=== PATIENT | female | born 1960 | race Caucasian/White ===

== ENCOUNTER → 2016-03-16 | Outpatient (CLI) | payer MEDICAID ==
[2016-03-16 12:08] VITALS: BP 113/78; PULSE 114; RESP 16; TEMP 98
--- NOTE | 2016-03-16 12:25 | P.PN ---
Progress Note - Text This is a 55-year-old female with history of cervical spondylosis without myelopathy. The patient's pain fluctuates between 4 and 8 and she has been on Bandy, nortriptyline, Zanaflex, and Neurontin. The pain radiates from the base of her skull down to with numbness in both hands. By physical exam she is alert oriented 3 in no apparent distress. She has tenderness in the cervical paravertebral musculature and also in the trapezius muscles bilaterally. Her neuro exam of the upper extremities showed normal muscle strength and normal biceps tendon reflexes however are absent triceps tendon reflexes symmetrically. The patient is scheduled to have cervical medial branch radiofrequency ablation under fluoroscopic guidance I will continue with her medications for now. Hopefully if she gets benefit from the ablation then we'll plan on cutting down her medications especially Bandy.
== END | disposition home or self-care (01) ==
LOC: PNWHC3 11:48
PROVIDERS: ATTEND Anesthesiology
DX: M47.812 Spondylosis without myelopathy or radiculopathy, cervical region (principal); Z79.899 Other long term (current) drug therapy
CPT/HCPCS: 99211

== ENCOUNTER 2016-03-18 07:00 | Day surgery (SDC) | payer MEDICAID ==
[2016-03-16 09:46] VITALS: BMI 23.3
[2016-03-18] MEDS: LACTATED RINGERS 1,000 ML IV SCH (07:47)
[2016-03-18] MEDS: LIDOCAINE 1% 20 ML VIAL (10MG/ML) FOR IV START INTRADERMA ONE (07:47)
[2016-03-18 07:49] VITALS: TEMP 98.1
[2016-03-18] MEDS ORDERED: ONDANSETRON 4 MG/2 ML VIAL IVP STA (08:00)
[2016-03-18] MEDS: ONDANSETRON 4 MG/2 ML VIAL IVP ONE (08:01)
[2016-03-18] MEDS ORDERED: fentaNYL (PF) 50 MCG/ML 2 ML AMP ONE (08:06)
[2016-03-18] MEDS ORDERED: MIDAZOLAM 2 MG/2 ML VIAL ONE (08:06)
[2016-03-18] MEDS ORDERED: TRIAMCINOLONE ACETONIDE 40 MG/ML 1 ML VIAL ONE (08:06)
[2016-03-18] MEDS ORDERED: BUPIVACAINE (PF) 0.25% 30 ML VIAL ONE (08:06)
--- NOTE | 2016-03-18 08:49 | P.PCN ---
Date of Procedure: 03/18/16 Procedure(s) Performed: PREOPERATIVE DIAGNOSIS: Cervical spondylosis with Facet Arthropathy without myelopathy. POSTOPERATIVE DIAGNOSIS: Cervical spondylosis with Facet Arthropathy without myelopathy. PROCEDURES: Radiofrequency thermocoagulation,Right C3, C4, C5, C6 medial branch with Fluroscopy [place] ANESTHESIA: Local with 1% lidocaine 4 ml ; IV sedation with fentanyl 100 mcg and Versed. 2 mg EBL: Minimal PROCEDURE INDICATION: The patient with neck pain secondary to cervical arthropathy who had more than 50% relief of her pain with previous diagnostic cervical medial branch block. PROCEDURE DESCRIPTION / TECHNIQUE: The patient was seen and identified in the preoperative area. Risks, benefits, complications, and alternatives were discussed with the patient, the patient agreed to proceed with the procedure and signed the consent. IV was started. Vital signs remained stable throughout the procedure. Patient was taken to the OR and time out was completed. The patient was placed in the prone position on the procedure table. A pillow was placed under the patients chest to increase the cervical interlaminar space. The cervical area was prepped and draped in the usual sterile fashion. Critical pause was taken. Vital signs were closely monitored during the procedure. Conscious sedation was used during the procedure to decrease patients anxiety. Using cross-table lateral fluoroscopy, the centroid of the trapezoid of Right C3, C4, C5, and C6 were identified, marked, and localized with 1% lidocaine. Subsequently, a 20 [id number] radiofrequency cannula with a 10-mm active tip was advanced guided by fluoroscopy to the centroid of the trapezoid of the right C3, C4, C5, and C6 . Needle tip position was confirmed at the centroid of the trapezoids of C3, C4, C5, and C6 with anteroposterior fluoroscopy. Each site then underwent sensory testing at 50 Hz and 0 to 1 volt and motor testing at 2 Hz and 0 to 3 volt with local stimulation, but no radicular symptoms down the arm. Thereafter Right C3, C4,C5 and C6 sites underwent radiofrequency thermocoagulation at 80 degrees celsius for 90 seconds after injecting 0.5 ml of PF lidocaine 1%. After thermocoagulation, 1 ml of the block solution containing Kenalog 40 mg and 5 mL of preservative-free normal saline was injected at the right C3, C4, C5, and C6 levels after negative aspiration of CSF and blood and with no paresthesias. Cannulas were retracted while injecting lidocaine 1% until the needle is out. Skin was cleansed and bandages were applied. COMPLICATIONS: No acute complications. COMMENTS: DISPOSITION / PLANS: The patient was placed in a supine position and transferred to the recovery area in a stable condition for observation and was discharged from the recovery room after meeting discharge criteria. Home discharge instructions given to the patient by the staff. The patient was reexamined prior to discharge. The patient will schedule a follow up in the clinic in 2-4 weeks and we will do the radiofrequency on the left side.
[2016-03-18] MEDS: IV FLUID CONTINUATION 1,000 ML IV ONE (08:55)
[2016-03-18 09:02] VITALS: RESP 18
--- NOTE | 2016-03-18 09:03 | FL ---
FLUOROSCOPY 23 seconds of fluoroscopy time were utilized during Pain Injection. 2 images document the procedure.
[2016-03-18 09:12] VITALS: BP 108/71; PULSE 69
== END 2016-03-18 09:30 | disposition home or self-care (01) ==
LOC: ORPAIN 07:00
PROVIDERS: ATTEND Specialist
DX: M46.82 Other specified inflammatory spondylopathies, cervical region (principal); M47.812 Spondylosis without myelopathy or radiculopathy, cervical region; Z88.2 Allergy status to sulfonamides
CPT/HCPCS: 64633; 64634 ×3; J2250; J3301; J2405; J3010

== ENCOUNTER 2016-04-30 09:06 | Day surgery (SDC) | payer MEDICAID ==
[2016-04-30 09:35] VITALS: TEMP 98.2
[2016-04-30] MEDS ORDERED: LIDOCAINE 1% 20 ML VIAL (10MG/ML) FOR IV START INTRADERMA ONE (09:45)
[2016-04-30] MEDS ORDERED: fentaNYL (PF) 50 MCG/ML 2 ML AMP ONE (09:54)
[2016-04-30] MEDS ORDERED: TRIAMCINOLONE ACETONIDE 40 MG/ML 1 ML VIAL ONE (09:54)
[2016-04-30] MEDS ORDERED: LACTATED RINGERS 1,000 ML IV ONE (09:54)
[2016-04-30] MEDS ORDERED: ONDANSETRON 4 MG/2 ML VIAL ONE (09:54)
[2016-04-30] MEDS ORDERED: MIDAZOLAM 2 MG/2 ML VIAL ONE (09:54)
[2016-04-30] MEDS ORDERED: BUPIVACAINE (PF) 0.5% 30 ML VIAL ONE (09:54)
[2016-04-30] MEDS ORDERED: LACTATED RINGERS 1,000 ML IV SCH (10:15)
--- NOTE | 2016-04-30 10:45 | P.PCN ---
Date of Procedure: 04/30/16 Procedure(s) Performed: PREOPERATIVE DIAGNOSIS: Cervical spondylosis with Facet Arthropathy without myelopathy. POSTOPERATIVE DIAGNOSIS: Cervical spondylosis with Facet Arthropathy without myelopathy. PROCEDURES: Radiofrequency thermocoagulation Left , C3, C4, C5, C6 medial branch with Fluroscopy Guidence ANESTHESIA: Local with 1% lidocaine 4 ml ; IV sedation with fentanyl 100 mcg and Versed 2 mg. EBL: Minimal PROCEDURE INDICATION: The patient with neck pain secondary to cervical arthropathy who had more than 50% relief of her pain with previous diagnostic cervical medial branch block. PROCEDURE DESCRIPTION / TECHNIQUE: The patient was seen and identified in the preoperative area. Risks, benefits, complications, and alternatives were discussed with the patient, the patient agreed to proceed with the procedure and signed the consent. IV was started. Vital signs remained stable throughout the procedure. Patient was taken to the OR and time out was completed. The patient was placed in the prone position on the procedure table. A pillow was placed under the patients chest to increase the cervical interlaminar space. The cervical area was prepped and draped in the usual sterile fashion. Critical pause was taken. Vital signs were closely monitored during the procedure. Conscious sedation was used during the procedure to decrease patients anxiety. Using cross-table lateral fluoroscopy, the centroid of the trapezoid of left C3 , C4, C5, and C6 were identified, marked, and localized with 1% lidocaine. Subsequently, a 20 [id number] radiofrequency cannula with a 10-mm active tip was advanced guided by fluoroscopy to the centroid of the trapezoid of left C3, C4, C5, and C6 . Needle tip position was confirmed at the centroid of the trapezoids of left C3, C4, C5, and C6 with anteroposterior fluoroscopy. Each site then underwent sensory testing at 50 Hz and 0 to 1 volt and motor testing at 2 Hz and 0 to 3 volt with local stimulation, but no radicular symptoms down the arm. Thereafter the left C3, C4,C5 and C6 sites underwent radiofrequency thermocoagulation at 80 degrees celsius for 90 seconds after injecting 0.5 ml of PF lidocaine 1%. After thermocoagulation, 1 ml of the block solution containing Kenalog 40 mg and 5 mL of preservative-free normal saline was injected at the left C3, C4, C5, and C6 levels after negative aspiration of CSF and blood and with no paresthesias. Cannulas were retracted while injecting lidocaine 1% until the needle is out. Skin was cleansed and bandages were applied. COMPLICATIONS: No acute complications. COMMENTS: DISPOSITION / PLANS: The patient was placed in a supine position and transferred to the recovery area in a stable condition for observation and was discharged from the recovery room after meeting discharge criteria. Home discharge instructions given to the patient by the staff. The patient was reexamined prior to discharge. The patient will schedule a follow up in the clinic in 2-4 weeks.
[2016-04-30] MEDS ORDERED: IV FLUID CONTINUATION 700 ML IV ONE (10:51)
--- NOTE | 2016-04-30 11:05 | FL ---
EXAMINATION TYPE: FL guided pain mgmt statistic DATE OF EXAM: 04/30/2016 10:40 AM CLINICAL HISTORY: Neck pain. TECHNIQUE: Fluoroscopy. COMPARISON: None. FINDINGS: Fluoroscopic guidance was provided during pain relief procedure performed by Dr. Parra . A total of 8 seconds of fluoroscopic time was utilized during the procedure and two spot images ar e acquired. Images acquired shows needle localization at multiple levels in the cervical spine. IMPRESSION: As Above.
[2016-04-30 11:19] VITALS: BP 116/69; PULSE 65; RESP 18
== END 2016-04-30 11:19 | disposition home or self-care (01) ==
LOC: ORPAIN 09:06
PROVIDERS: ATTEND Specialist
DX: M47.812 Spondylosis without myelopathy or radiculopathy, cervical region (principal); M46.92 Unspecified inflammatory spondylopathy, cervical region; Z88.2 Allergy status to sulfonamides; Z91.030 Bee allergy status; Z91.02 Food additives allergy status
CPT/HCPCS: 64634 ×3; 64633; 99152; 99153 ×2; J2250; J3301; J2405; J3010

== ENCOUNTER → 2016-06-01 | Outpatient (CLI) | payer MEDICAID ==
[2016-06-01 12:33] VITALS: BP 143/83; PULSE 99; RESP 16; TEMP 98.4
--- NOTE | 2016-06-01 13:11 | P.PN ---
Progress Note - Text Patient returns for followup for chronic neck and back pain with radiation to right lower extremity. Patient recently underwent bilateral cervical RFA, which has provided excellent relief for her for the time interval since. Patient continues on [place], Neurontin, Zanaflex medications for pain with good relief. Patient denies adverse drug effects from medications. Today, pt denies new-onset weakness, bowel/bladder incontinence, or any other signs or symptoms of cauda equina syndrome. There are no signs of acute intoxication, and no indications of medication diversion or overuse. In addition to above, 13-point review of systems is also negative for chest pain , shortness of breath, changes in vision, changes in hearing, new onset weakness , abdominal pain, diarrhea, extreme fatigue, malaise, fever, skin changes, homicidal or suicidal ideation, or bowel or bladder incontinence. Vital Signs: Reviewed in EMR Gen: WDWN, AAOx3, NAD HEENT: NCAT, EOMI, hearing grossly normal Pulm: resp unlabored Abd: soft, NT, ND Neck: supple, trachea midline ROM in flexion lumbar spine: reduced ROM in extension lumbar spine: reduced Lumbar paravertebral tenderness: + Facet loading: + bilateral SI joint tenderness: + RLE Jasbir's test: neg bilateral Straight leg raise: + RLE Lower extremity: decreased ROM dorsiflexion/plantarflexion strength, hip flexion/extension, and knee flexion/extension secondary to pain Neuro: CN II-XII grossly intact, muscle strength lower extremities PRESERVED Imaging: Reviewed in EMR Assessment: 1. cervical spondylosis without myelopathy 2. lumbar spondylosis with myelopathy 3. SIJ dysfunction Plan: 1. Explanation: Opioid and psychological risk scores were reviewed. Diagnoses , prognoses, and multiple treatment options including but not limited to physical therapy, interventional therapies, adjuvant medical therapies, narcotic medication therapies, and surgery were discussed with the patient and all questions were answered to the patient's satisfaction. 2. Opioid agreement: Patient has previously signed narcotic agreement, and was orally counseled to not overuse, abuse, divert, or cell medications, and to take them as prescribed by only 1 healthcare provider. The patient was also counseled to store opioid medications in a safe and preferably locked location. Patient was also counseled against driving or operating heavy equipment while using narcotic medications and also to not use alcohol or any illicit or recreational drugs. The patient verbalized understanding that lack of compliance with any of the above and likely result in failure to renew narcotic prescriptions, possible discharge from the clinic, and possible legal ramifications thereafter if indicated. 3. Counseling: The patient was counseled extensively on BODY MASS INDEX, EXERCISE. Specifically, the patient was instructed regarding the importance of weight control and exercise in the context of both chronic pain and overall health. 4. Procedures: none for now, await MRI L-spine 5. Consultations: None 6. Investigations: MRI L-spine 7. Medications: [place] 10/325 #90 with one refill 8. Disposition: f/u for re-eval in 8 weeks PQRS measures: 1-Patient's medications are documented in the chart. 2-Tobacco use is negative 3-Patient has not had a pneumococcal vaccine. 4-Advanced care planning discussed, patient unable to give. 5-Opioid contract signed with the patient. 6-Pain positive, follow-up visit or procedure scheduled 7-Patient's blood pressure measured and documented, and patient will follow up with the primary care due to hypertension. 8-Patient's weight was measured, and body mass index ABOVE the normal limits, and counseling was done. Patient instructed to follow up with PCP. 9-Patient WAS NOT identified as an unhealthy alcohol user.
== END ==
LOC: PNWHC3 12:17
PROVIDERS: ATTEND Anesthesiology
DX: M47.16 Other spondylosis with myelopathy, lumbar region (principal); M47.812 Spondylosis without myelopathy or radiculopathy, cervical region; M53.88 Other specified dorsopathies, sacral and sacrococcygeal region
CPT/HCPCS: 80307; 80364; 99211

== ENCOUNTER → 2016-06-16 | Outpatient (CLI) | payer MEDICAID ==
--- NOTE | 2016-06-16 13:32 | MR ---
EXAMINATION TYPE: MR lumbar spine wo con DATE OF EXAM: 06/16/2016 1:17 PM COMPARISON: MRI lumbar spine August 01, 2013. HISTORY: lumbar spondylosis w/myelopathy per order. TECHNIQUE: Multiplanar, multisequence imaging of the lumbar spine is performed without IV contrast. FINDINGS: Sagittal images of the lumbar spine show vertebral body heights to appear satisfactory. Sta ble slight dextroconvex scoliosis is present. There is persistent multilevel disc desiccation. There is persistent moderate multilevel disc space narrowing and advanced disc space narrowing L5-S1 level. Multilevel small posterior disc herniations are seen on sagittal images. The conus medullaris remai ns normal in position and signal ending at inferior L1 level. The bone marrow signal intensity is wi thin normal limits. Mild to moderate multilevel anterior spurring is redemonstrated. Axial images show the T12-L1 level to remain within normal limits. Axial images at L1-L2 level redemonstrate mild broad based posterior disc protrusion mildly effacing anterior thecal sac, bilateral neural foramina are patent. No significant change from prior study is seen. Mild facet arthropathy bilaterally is redemonstrated and stable. Axial images at L2-L3 level show mild broad disc bulge mildly effacing anterior thecal sac on axial i mage 17. Bilateral neural foramina are patent. No significant change from prior study is seen. Axial images at L3-L4 level show mild facet degenerative changes bilaterally at effacing posterior la teral thecal sac. There is mild broad disc bulge effacing anterior thecal sac on axial image 12. Ther e is mild bilateral anterior inferior neural foraminal narrowing seen. No significant change from adrian or study is identified. Axial images at L4-L5 level show moderate facet degenerative changes and ligamentum flavum hypertroph y bilaterally effacing posterior lateral thecal sac or prominent on current study axial image 7 versu s prior study. There is broad-based posterior disc protrusion effacing anterior thecal sac and causin g mild to moderate right and mild left-sided neural foraminal narrowing more prominent than prior imani dy. Axial images at L5-S1 level mild facet arthropathy bilaterally. Spinal canal is preserved. Bilateral neural foramina are maintained. There is subcentimeter T2 hyperintense lesion posterior right hepatic lobe on axial image 30 likely r eflecting simple cyst. IMPRESSION: Stable dextroconvex scoliosis with multilevel degenerative changes in lumbar spine as det liliane above, progression in findings L4-L5 level is noted since prior.
== END | disposition home or self-care (01) ==
LOC: RADMRIMAIN 12:39
PROVIDERS: ATTEND Anesthesiology
DX: M47.16 Other spondylosis with myelopathy, lumbar region (principal); M41.86 Other forms of scoliosis, lumbar region
CPT/HCPCS: 72148

== ENCOUNTER → 2016-07-27 | Outpatient (CLI) | payer MEDICAID ==
[2016-07-27 12:55] VITALS: BP 99/62; PULSE 87; RESP 16
--- NOTE | 2016-07-28 14:49 | P.PN ---
Subjective This is follow-up visit for this patient with a history of severe and chronic neck pain, diagnosed with cervical spondylosis, we did interventional pain management injection,, we done diagnostic medial branch block cervical area, and later on followed with radiofrequency ablation of the medial branch cervical area, she got excellent pain relief, and currently she is complaining of severe low back pain, and we ordered MRI of the lumbar spine, and patient here today to discuss the results of the MRI report and also to get medication refill Her MRI report showed patient had multi leveles lumbar bulging disc disease and also she had multilevel lumbar facet arthropathy, she denies any motor or sensory deficit she denies any fever or night sweats which she denies any change in the movement or urination, she is currently on 1-Leonidas 10/325 every 6 hours 2- Neurontin 300 mg every 8 hours 3- zanaflex 4 mg every 8 hours. 4-nortriptyline 10 mg daily at bedtime Patient denies any side effects of the medication, denies excessive drowsiness or sleepiness, denies suicidal ideation, and reports that the current pain medication is helping To control the pain and improve activity of daily living . Patient denies any motor or sensory deficit, denies change in bowel movement or urination, patient denies any fever or night sweats and patient here for follow-up visit and medication refill Objective - Vital Signs Vital signs: Vital Signs Temp Pulse 87 07/27/16 12:47 Resp 16 07/27/16 12:47 BP 99/62 07/27/16 12:47 Pulse Ox 98 07/27/16 12:47 Intake & Output 07/27/16 07/28/16 07/28/16 18:59 06:59 18:59 Weight 68.039 kg - Exam Physical Examinations : 1-Constitutiona : Cooperative , not in acute distress . 2-HEENT : nech ; supple , no Lymphadenopathy , normal thyroid size . eyes : no ptosis , no icterus, no photophobia . ENT : normal of hearing , normal oropharynx , no Thrush . 3- Respiratory : Chest clear to auscultations Bilaterally , no wheezing , no Rhonchi . 4- Cardiovascular : regular rate and rhythem , S1 , S2 , no S3 , no S4. 5- Gastrointestinal : abdomen soft no tenderness , bowel sounds positive all four quadrents , no organomegally . 6- Genitourinary : Defferred . 7- neurologic : Cranial nerve II to XII intact , no focal neurological deffecit . 8-psychatric : alert , oriented X 3 , appropriate affect , intact judgment and insight . 9-Lymphatic : no Lymphadenopathy . 10- musculoskeltal : cervical spine = motor stregnth in the deltoid and biceps, motor stregnth biceps and the wrist extensors (C6) . motor stregnth in the triceps muscle . deep tendon reflexes normal at the biceps , l normal at Brachioradialis normal at the triceps , Lumber spine = normal moter stegnth lower extremities ,thigh and legs .5/5 deep tendon reflexes : normal Knee Jerk , normal ankle Jerk . positive lumber facet Loading Test strait leg raising test negative bilaterally Fabere test negative bilaterally mild to moderate tenderness over the Sacroiliac joint on the Right , and Left side Assessment and Plan Plan: Assessment and plan= -chronic low back pain secondary to lumbar degenerative disc disease , lumbar spondylosis with lumbar facet arthropathy without myelopathy, -chronic neck pain secondary to cervical degenerative disc disease cervical spondylosis with facet arthropathy without myelopathy. - chronic and current use of high-risk medication (opioids) -Patient denies any side effects of the current pain medication and the current treatment, and the patient to do activity of daily living , Medication managements= patient will be given prescription refills for 1-Leonidas 10/325 every 6 hours dispensed 90 with 1 refil 2-Zanaflex 4 mg every 8 hours dispense 90 with 1 refill 3-nortriptyline 10 mg daily at bedtime dispense 30 with one refill 4-Neurontin 300 mg every 8 hours dispense 90 with 1 refill Interventional pain management= patient will be scheduled for diagnostic medial branch block lumbar area L3-4/L- 5/L5-S1 Refferal =none Follow-up= 2 months , Time with Patient: Less than 30
== END ==
LOC: PNWHC3 12:25
PROVIDERS: ATTEND Specialist
DX: M51.36 Other intervertebral disc degeneration, lumbar region (principal); M47.816 Spondylosis without myelopathy or radiculopathy, lumbar region; M46.86 Other specified inflammatory spondylopathies, lumbar region; G89.29 Other chronic pain; M50.30 Other cervical disc degeneration, unspecified cervical region; M47.812 Spondylosis without myelopathy or radiculopathy, cervical region; M46.82 Other specified inflammatory spondylopathies, cervical region; Z79.891 Long term (current) use of opiate analgesic
CPT/HCPCS: 99211

== ENCOUNTER → 2016-09-21 | Outpatient (CLI) | payer MEDICAID ==
[2016-09-21 12:43] VITALS: BP 124/58; PULSE 78; RESP 18; TEMP 98.2
--- NOTE | 2016-09-21 13:01 | P.PN ---
Progress Note - Text Patient returns for followup for chronic neck and back pain with radiation to right lower extremity > left lower extremity. Patient was scheduled to undergo lumbar MBB but developed a sinus infection and had to reschedule. Patient continues on [place], Neurontin, Pamelor, Zanaflex medications for pain with good relief. Patient denies adverse drug effects from medications. Today, pt denies new-onset weakness, bowel/bladder incontinence, or any other signs or symptoms of cauda equina syndrome. There are no signs of acute intoxication, and no indications of medication diversion or overuse. In addition to above, 13-point review of systems is also negative for chest pain , shortness of breath, changes in vision, changes in hearing, new onset weakness , abdominal pain, diarrhea, extreme fatigue, malaise, fever, skin changes, homicidal or suicidal ideation, or bowel or bladder incontinence. Vital Signs: Reviewed in EMR Gen: WDWN, AAOx3, NAD HEENT: NCAT, EOMI, hearing grossly normal Pulm: resp unlabored Abd: soft, NT, ND Neck: supple, trachea midline ROM in flexion lumbar spine: reduced ROM in extension lumbar spine: reduced Lumbar paravertebral tenderness: + Facet loading: + bilateral, R > L SI joint tenderness: + R Jasbir's test: neg bilateral Straight leg raise: neg Lower extremity: decreased ROM dorsiflexion/plantarflexion strength, hip flexion/extension, and knee flexion/extension secondary to pain Neuro: CN II-XII grossly intact, muscle strength lower extremities PRESERVED Imaging: Reviewed in EMR Assessment: 1. cervical spondylosis without myelopathy 2. lumbar spondylosis with myelopathy 3. SIJ dysfunction Plan: 1. Explanation: Opioid and psychological risk scores were reviewed. Diagnoses , prognoses, and multiple treatment options including but not limited to physical therapy, interventional therapies, adjuvant medical therapies, narcotic medication therapies, and surgery were discussed with the patient and all questions were answered to the patient's satisfaction. 2. Opioid agreement: Patient has previously signed narcotic agreement, and was orally counseled to not overuse, abuse, divert, or cell medications, and to take them as prescribed by only 1 healthcare provider. The patient was also counseled to store opioid medications in a safe and preferably locked location. Patient was also counseled against driving or operating heavy equipment while using narcotic medications and also to not use alcohol or any illicit or recreational drugs. The patient verbalized understanding that lack of compliance with any of the above and likely result in failure to renew narcotic prescriptions, possible discharge from the clinic, and possible legal ramifications thereafter if indicated. 3. Counseling: The patient was counseled extensively on BODY MASS INDEX, EXERCISE. Specifically, the patient was instructed regarding the importance of weight control and exercise in the context of both chronic pain and overall health. 4. Procedures: lumbar MBB bilateral 5. Consultations: None 6. Investigations: 7. Medications: [place] 10/325 #90 with one refill, Neurontin (300 mg #90)/ Zanaflex/Pamelor refilled all with two refills 8. Disposition: f/u for re-eval in 8 weeks PQRS measures: 1-Patient's medications are documented in the chart. 2-Tobacco use is negative 3-Patient has not had a pneumococcal vaccine. 4-Advanced care planning discussed, patient unable to give. 5-Opioid contract signed with the patient. 6-Pain positive, follow-up visit or procedure scheduled 7-Patient's blood pressure measured and documented, and patient will follow up with the primary care due to hypertension. 8-Patient's weight was measured, and body mass index ABOVE the normal limits, and counseling was done. Patient instructed to follow up with PCP. 9-Patient WAS NOT identified as an unhealthy alcohol user.
== END | disposition home or self-care (01) ==
LOC: PNWHC3 12:28
PROVIDERS: ATTEND Anesthesiology
DX: M47.812 Spondylosis without myelopathy or radiculopathy, cervical region (principal); M47.816 Spondylosis without myelopathy or radiculopathy, lumbar region; M53.3 Sacrococcygeal disorders, not elsewhere classified
CPT/HCPCS: 99211

== ENCOUNTER → 2016-10-08 | Outpatient (CLI) | payer MEDICAID ==
[2016-10-08 17:16] LABS: Basophils # (A) 0.1 k/uL (0-0.2); Basophils % (A) 1 %; CH 31.3; CHCM 33.7; Eosinophils # (A) 0.2 k/uL (0-0.7); Eosinophils % (A) 2 %; HCT 39.3 % (34.0-46.0); HDW 2.81; HGB 12.8 gm/dL (11.4-16.0); Luc % (Auto) 3; Lymphocytes # (A) 1.7 k/uL (1.0-4.8); Lymphocytes % (A) 26 %; MCH 30.3 pg (25.0-35.0); MCHC 32.5 g/dL (31.0-37.0); MCV 93.2 fL (80.0-100.0); Mean Platelet Volume 7.1; Monocytes # (A) 0.3 k/uL (0-1.0); Monocytes % (A) 4 %; Neutrophils # (A) 4.2 k/uL (1.3-7.7); Neutrophils % (A) 64 %; RBC 4.22 m/uL (3.80-5.40); RDW 13.3 % (11.5-15.5); WBC 6.6 k/uL (3.8-10.6); WBC (Perox) 6.81
[2016-10-08 17:22] LABS: ALT 37 U/L (9-52); AST 21 U/L (14-36); Alkaline Phosphatase 88 U/L (38-126); Anion Gap 10 mmol/L; Blood Urea Nitrogen 16 mg/dL (7-17); Calcium 9.6 mg/dL (8.4-10.2); Carbon Dioxide 26 mmol/L (22-30); Chloride 106 mmol/L (98-107); Cholesterol 211 mg/dL (<200); Glucose 88 mg/dL (74-99); HDL Cholesterol 44 mg/dL (40-60); Non-African American GFR(MDRD) >60 (>60 ml/min/1.73 sqM); Potassium 4.3 mmol/L (3.5-5.1); Sodium 142 mmol/L (137-145); Total Bilirubin 0.4 mg/dL (0.2-1.3); Total Protein 6.8 g/dL (6.3-8.2)
[2016-10-08 19:53] LABS: Hemoglobin A1C 5.8 % (4.2-6.1)
== END | disposition home or self-care (01) ==
LOC: LABWHC1 16:32
PROVIDERS: ATTEND Family Medicine
DX: I10 Essential (primary) hypertension (principal)
CPT/HCPCS: 36415; 80053; 80061; 83036; 84443; 85025

== ENCOUNTER 2016-10-15 13:03 | Day surgery (SDC) | payer MEDICAID ==
[2016-10-14 08:39] VITALS: BMI 24.1
[~2016-10-15 13:03] MED LIST: LACTATED RINGERS 1,000 ML IV ONE
[2016-10-15 13:16] VITALS: TEMP 97.6
[2016-10-15] MEDS ORDERED: LIDOCAINE 1% 20 ML VIAL (10MG/ML) FOR IV START INTRADERMA ONE (13:16)
[2016-10-15] MEDS ORDERED: ONDANSETRON 4 MG/2 ML VIAL IVP STA (13:27)
--- NOTE | 2016-10-15 15:08 | P.PCN ---
Date of Procedure: 10/15/16 Preoperative Diagnosis: Postoperative Diagnosis: Procedure(s) Performed: PREOPERATIVE DIAGNOSIS : 1- Lumbar spondylosis with Facet Arthropathy without myelopathy . 2- Lumber degenerative disc disease POSTOPERATIVE DIAGNOSIS: 1- Lumbar spondylosis with Facet Arthropathy without myelopathy . 2- Lumber degenerative disc disease PROCEDURE: Diagnostic bilateral L3 -4 , L4 -5 , and L5-S1 medial branch block under fluoroscopy ANESTHESIA: Local with 1% lidocaine 6 ml ; IV sedation with Versed 2 mg and Fentanyl 25 mcg. EBL: Minimal COMPLICATION: None. IV FLUIDS: 100 mL of normal saline. PROCEDURE INDICATION: Chronic low back pain secondary to Facet arthropathy unresponsive to conservative treatment. PROCEDURE DESCRIPTION: the patient was seen and identified in the preop holding area , risks and benefits and possible complications of the procedure and alternative were discussed with the patient, and the patient agreed to proceed with the procedure and signed the consent IV was started and vital signs monitored during the procedure and fluoroscopy was used to maximize the benefit and accuracy of the needle placement, and sedation was given to decrease patient anxiety, patient was taken to the procedure room and placed in prone position vital signs monitored in the back prepped with chlorhexidine X3 then under strict sterile technique using a right oblique fluoroscopy ,the junction of the transverse process and the superior articulating process of the right L3- 4 , L4- 5, and L5-S1 vertebra which corresponding to the fluoroscopy image of the eye of the Jonathon dog on the block side for the medial branches and subsequently , after local infiltration of skin and subcu tissuies with lidocaine 1% one mL at each level ,then 22- gauge Quincke-type needles , 3 needle was used , each one of them placed at the junction of the base of the transverse process and the superior articular process at the appropriate level, and the needle was advanced until the periosteum contacted, needle placement confirmed with AP oblique and lateral view and after appropriate needle placement confirmed, and after negative aspiration for heme and CSF and there was no paresthesia 1-1/2 mL of Marcaine 0.5% mixed with 40 mg Kenalog , then half mL injected at each level after negative aspiration the needle subsequently removed and the same procedure repeated for the left side at left side at L3-4, L4- 5 and L5-S1 levels. At the end of the procedure and the needles removed and a bandage applied after the skin was cleaned the cleaning solution patient taken to recovery room in stable condition and monitors in the recovery room for 20-30 minutes and discharged home in stable condition after discharge criteria met and patient will follow up with the pain clinic in 2-4 weeks Implants: Indications for Procedure: Operative Findings: Description of Procedure:
[2016-10-15 15:17] VITALS: RESP 16
[2016-10-15] MEDS ORDERED: IV FLUID CONTINUATION 1,000 ML IV ONE (15:20)
--- NOTE | 2016-10-15 15:22 | FL ---
FLUOROSCOPY 11 seconds of fluoroscopy time were utilized during lumbar facet injection. 4 images document the pro cedure.
[2016-10-15 15:29] VITALS: BP 87/64; PULSE 71
== END 2016-10-15 15:32 | disposition home or self-care (01) ==
LOC: ORPAIN 13:03
PROVIDERS: ATTEND Specialist
DX: G89.29 Other chronic pain (principal); M47.816 Spondylosis without myelopathy or radiculopathy, lumbar region; M46.96 Unspecified inflammatory spondylopathy, lumbar region; M51.36 Other intervertebral disc degeneration, lumbar region; Z88.2 Allergy status to sulfonamides; Z88.1 Allergy status to other antibiotic agents; Z91.02 Food additives allergy status
CPT/HCPCS: 64493; 64494; 64495; 99152; J2250; J1100; J2405; J3010

== ENCOUNTER 2016-11-16 09:29 | Day surgery (SDC) | payer MEDICAID ==
[2016-11-16 10:05] VITALS: TEMP 97.8
[2016-11-16] MEDS ORDERED: LACTATED RINGERS 1,000 ML IV ONE (10:05)
[2016-11-16] MEDS ORDERED: LIDOCAINE 1% 20 ML VIAL (10MG/ML) FOR IV START INTRADERMA ONE (10:06)
--- NOTE | 2016-11-16 10:40 | P.PCN ---
Date of Procedure: 11/16/16 Surgeon: Fracisco Flores Pathology: none sent Condition: stable Disposition: PACU Description of Procedure: PREOPERATIVE DIAGNOSIS: L3-L4, L4-L5, and L5-S1 spondylosis without myelopathy and facet arthropathy. POSTOPERATIVE DIAGNOSIS: L3-L4, L4-L5, and L5-S1 spondylosis without myelopathy and facet arthropathy. PROCEDURE DESCRIPTION: Patient presents for L3-L4, L4-L5 and L5-S1 diagnostic medial branch blocks under fluoroscopic guidance. The procedure is performed using fluoroscopic guidance during needle placement to assure proper position and maximize safety. ANESTHESIA: Local with 1% lidocaine; conscious sedation with Versed only EBL: Minimal PROCEDURE INDICATION: Patient with lumbar facet arthropathy signs and symptoms, here for diagnostic medial branch block #2. Pt does not take any blood thinning medications. 1 day's relief from first MBB > 70% and patient is here for second procedure today. PROCEDURE DESCRIPTION: The patient was seen and identified in the preoperative area. Risks, benefits, complications, and alternatives were discussed with the patient (including but not limited to incomplete pain relief, bleeding, infection, nerve damage, and allergies to medications), the patient agreed to proceed with the procedure and signed the consent after all questions were answered. Patient was taken to the OR and time out was completed to verify proper patient, position, laterality of pain, and allergies. Pt was placed in the prone position and a pillow was placed under the abdomen to reduce lumbar lordosis. The lumbosacral area was prepped and draped in the usual sterile fashion. Using oblique fluoroscopy, the eye of the "Jonathon dog" of right L4 vertebral body, which corresponds to the path of the medial branch originating from the level above, which is L3 in this case, was identified. Subsequently, a 22-gauge 3.5-inch spinal needle was inserted under fluoroscopic guidance toward the eye of the "Jonathon dog" of the right L4 vertebral body, corresponding to the junction of the superior articular process and the transverse process of the pedicle of the same level. After needle tip confirmation on lateral view and after negative aspiration for CSF and blood and without paresthesias, 1 mL of a 6 ml solution of 0.5% preservative-free bupivacaine and 40 mg Kenalog was injected. Subsequently the needle was withdrawn intact and the same procedure was repeated for the right L4, right L5, left L3, left L4, and left L5 medial branches which together with right L3 medial branch correspond to the sensory innervation of the bilateral L3-L4, L4-L5, and L5-S1 facet joints. Needle was withdrawn intact after each injection. At the end of the procedure, the skin was cleansed and bandages were applied. COMPLICATIONS: None. DISPOSITION/PLAN: The patient taken to the recovery area after the procedure in a stable condition for observation. Patient was reexamined prior to discharge and there were no issues. Patient was discharged home, accompanied by an adult, after meeting discharged criteria. Discharge instructions were give to the patient by the staff. Patient was specifically instructed not to drive today and to rest for the rest of the day. If good relief, will plan for right lumbar RFA next.
[2016-11-16] MEDS ORDERED: KETOROLAC 30 MG/ML 1 ML VIAL IVP STA (10:42)
[2016-11-16] MEDS ORDERED: HYDROmorphone 1 MG/ML 1 ML SYRINGE IVP PRN (10:43)
[2016-11-16] MEDS ORDERED: LACTATED RINGERS 1,000 ML IV SCH (10:45)
[2016-11-16] MEDS ORDERED: IV FLUID CONTINUATION 1,000 ML IV ONE ×2 (10:47)
--- NOTE | 2016-11-16 11:08 | FL ---
EXAMINATION TYPE: FL guided pain mgmt statistic DATE OF EXAM: 11/16/2016 CLINICAL HISTORY: Low back pain. TECHNIQUE: Fluoroscopy. COMPARISON: None. FINDINGS: Fluoroscopic guidance was provided during pain relief procedure performed by Dr. Flores . A total of 9 seconds of fluoroscopic time was utilized during the procedure and 5 spot images are acq uired. Images acquired shows needle localization at multiple levels bilaterally in the lower lumbar spine. IMPRESSION: As Above.
[2016-11-16 11:19] VITALS: RESP 18
[2016-11-16] MEDS ORDERED: ONDANSETRON 4 MG/2 ML VIAL IVP STA (11:22)
[2016-11-16 11:32] VITALS: BP 155/91; PULSE 87
== END 2016-11-16 11:57 | disposition home or self-care (01) ==
LOC: ORPAIN 09:29
PROVIDERS: ATTEND Anesthesiology
DX: M47.816 Spondylosis without myelopathy or radiculopathy, lumbar region (principal); M47.817 Spondylosis without myelopathy or radiculopathy, lumbosacral region; I10 Essential (primary) hypertension; E03.9 Hypothyroidism, unspecified; Z88.2 Allergy status to sulfonamides; Z79.899 Other long term (current) drug therapy; Z91.030 Bee allergy status; Z91.02 Food additives allergy status
CPT/HCPCS: 64493; 64494; 64495; 99152; J2250; J3301; J2405; J1885; J1170

== ENCOUNTER 2016-12-30 19:02 | Emergency (ER) | payer MEDICAID ==
--- NOTE | 2016-12-30 20:00 | ED ---
General Adult HPI - General Chief complaint: Recheck/Abnormal Lab/Rx Stated complaint: Recheck Time Seen by Provider: 12/30/16 19:05 Source: patient, RN notes reviewed Mode of arrival: ambulatory Limitations: no limitations - History of Present Illness Initial comments: This a 56-year-old female comes in today because while at work she was having abnormal extremity movements of all 4 extremities. She was also moving her head and abnormal ways at the staff and never seen before sleep wanted the patient to be evaluated. Patient states that about 3 weeks ago she was admitted to the hospital for similar. Patient states she has not started any new medicines prior to the initial episode. Patient denies any drug use or alcohol use. Patient agrees that her muscles are twitching and moving abnormally but this is been ongoing since her last admission. Patient denies any headache patient denies numbness or weakness. Patient denies any recent fever chills or chills. Patient denies any neck pain. Patient denies any recent trauma. Staff also thought the patient was giggling occasionally inappropriately but currently she is not exhibiting any of that behavior here. - Related Data Home Medications Medication Instructions Recorded Confirmed Ibuprofen [Motrin] 400 mg PO BID PRN 03/16/16 12/30/16 rOPINIRole HCL [Requip] 1 mg PO HS 12/23/16 12/30/16 Previous Rx's Medication Instructions Recorded Gabapentin [Neurontin] 300 mg PO TID #90 cap 09/21/16 HYDROcodone/APAP 10-325MG [[place] 1 each PO BID PRN #30 tab 12/04/16 10-325] Levothyroxine Sodium [Synthroid] 75 mcg PO 0630 #30 tab 12/04/16 tiZANidine [Zanaflex] 2 mg PO TID PRN #60 tab 12/04/16 Allergies Allergy/AdvReac Type Severity Reaction Status Date / Time gluten Allergy swelling Verified 12/30/16 19:11 of thyroid venom-honey bee Allergy Anaphylaxis Verified 12/30/16 19:11 [bee venom (honey bee)] Sulfa (Sulfonamide AdvReac Diarrhea Verified 12/30/16 19:11 Antibiotics) Review of Systems ROS Statement: Those systems with pertinent positive or pertinent negative responses have been documented in the HPI. ROS Other: All systems not noted in ROS Statement are negative. Past Medical History Past Medical History: Fibromyalgia, Hyperlipidemia, Osteoarthritis (OA), Thyroid Disorder Additional Past Medical History / Comment(s): Pt states that about 3 days ago she started having jerky, uncontrollable movements along with muscle spasms and clenching of her teeth. She has also started having difficulty swallowing solids and liquids. Other hx: cervical and back disc disease/herniations, R sided sciatica, migraines, numbness/tingling bilateral hands/fingers and feet , lately elevated blood pressure, hypothyroid. History of Any Multi-Drug Resistant Organisms: None Reported Past Surgical History: Orthopedic Surgery, Tonsillectomy, Tubal Ligation Additional Past Surgical History / Comment(s): Numerous [facility] procedures with last time being 11/16/16 lumbar facet block, right carpal tunnel release, right shoulder arthroscopic sx for impingement. Past Anesthesia/Blood Transfusion Reactions: No Reported Reaction, Postoperative Nausea & Vomiting (PONV) Past Psychological History: Anxiety Smoking Status: Former smoker - Past Family History Mother Family Medical History: No Reported History Additional Family Medical History / Comment(s): Mother is healthy. Father Family Medical History: Dementia Additional Family Medical History / Comment(s): Father from alzheimers. General Exam - General Exam Comments Initial Comments: GENERAL: Patient is well-developed and well-nourished. Patient is nontoxic and well- hydrated and is in no acute distress. Patient is having involuntary movements of all 4 of her extremities she does not appear to be in any distress or pain ENT: Neck is soft and supple. No significant lymphadenopathy is noted. Oropharynx is clear. Moist mucous membranes. Neck has full range of motion without eliciting any pain. EYES: The sclera were anicteric and conjunctiva were pink and moist. Extraocular movements were intact and pupils were equal round and reactive to light. Eyelids were unremarkable. PULMONARY: Unlabored respirations. Good breath sounds bilaterally. No audible rales rhonchi or wheezing was noted. CARDIOVASCULAR: There is a regular rate and rhythm without any murmurs gallops or rubs. ABDOMEN: Soft and nontender with normal bowel sounds. SKIN: Skin is clear with no lesions or rashes and otherwise unremarkable. NEUROLOGIC: Patient is alert and oriented x3. Cranial nerves II through XII are grossly intact. Motor and sensory are also intact. Normal speech, volume and content. Symmetrical smile. Musculoskeletal Normal extremities with adequate strength and full range of motion. LYMPHATICS: No significant lymphadenopathy is noted PSYCHIATRIC: Normal psychiatric evaluation. Patient is upset because she is embarrassed that she was pulled aside in front of her coworkers. Limitations: no limitations Course Vital Signs 12/30/16 12/30/16 19:06 21:28 Temperature 99.0 F 98.3 F Pulse Rate 115 H 108 H Respiratory 20 18 Rate Blood Pressure 180/95 144/83 O2 Sat by Pulse 96 98 Oximetry Medical Decision Making - Medical Decision Making EKG shows sinus tachycardia at 104 bpm WI interval is 132 QRS is 76 QT interval 332 QTC is 436. I spoke with Dr. Britt and he agrees that the Neurontin because the patient's symptoms. The patient will reduce her Neurontin just once a day for a week and if her symptoms improve she will stop altogether after a week. I spoke to her and her son they both understand. - Lab Data Result diagrams: 12/30/16 20:15 12/30/16 20:15 Lab Results 12/30/16 12/30/16 12/30/16 Range/Units 20:15 20:15 20:15 WBC 11.5 H (3.8-10.6) k/uL RBC 4.06 (3.80-5.40) m/uL Hgb 12.4 (11.4-16.0) gm/dL Hct 38.1 (34.0-46.0) % MCV 94.0 (80.0-100.0) fL MCH 30.6 (25.0-35.0) pg MCHC 32.6 (31.0-37.0) g/dL RDW 13.8 (11.5-15.5) % Plt Count 332 (150-450) k/uL Neutrophils % 77 % Lymphocytes % 13 % Monocytes % 7 % Eosinophils % 1 % Basophils % 0 % Neutrophils # 8.8 H (1.3-7.7) k/uL Lymphocytes # 1.5 (1.0-4.8) k/uL Monocytes # 0.8 (0-1.0) k/uL Eosinophils # 0.2 (0-0.7) k/uL Basophils # 0.0 (0-0.2) k/uL Sodium 143 (137-145) mmol/L Potassium 3.9 (3.5-5.1) mmol/L Chloride 109 H (98-107) mmol/L Carbon Dioxide 23 (22-30) mmol/L Anion Gap 11 mmol/L BUN 12 (7-17) mg/dL Creatinine 0.70 (0.52-1.04) mg/dL Est GFR (MDRD) Af Amer >60 (>60 ml/min/1.73 sqM) Est GFR (MDRD) Non-Af >60 (>60 ml/min/1.73 sqM) Glucose 87 (74-99) mg/dL POC Glucose (mg/dL) (75-99) mg/dL POC Glu Dairy Science Teacher ID Calcium 9.5 (8.4-10.2) mg/dL Total Bilirubin 0.3 (0.2-1.3) mg/dL AST 36 (14-36) U/L ALT 39 (9-52) U/L Alkaline Phosphatase 115 (38-126) U/L Total Protein 6.7 (6.3-8.2) g/dL Albumin 4.2 (3.5-5.0) g/dL TSH 0.031 L (0.465-4.680) mIU/L Free T4 1.91 (0.78-2.19) ng/dL Urine Color Yellow Urine Appearance Clear (Clear) Urine pH 6.0 (5.0-8.0) Ur Specific [place] 1.020 (1.001-1.035) Urine Protein Trace H (Negative) Urine Glucose (UA) Negative (Negative) Urine Ketones 2+ H (Negative) Urine Blood Negative (Negative) Urine Nitrite Negative (Negative) Urine Bilirubin Negative (Negative) Urine Urobilinogen <2.0 (<2.0) mg/dL Ur Leukocyte Esterase Large H (Negative) Urine RBC 4 (0-5) /hpf Urine WBC 4 (0-5) /hpf Ur Squamous Epith Cells 1 (0-4) /hpf Urine Bacteria Rare H (None) /hpf Urine Mucus Occasional H (None) /hpf Urine Opiates Screen Detected H (NotDetected) Ur Oxycodone Screen Not Detected (NotDetected) Urine Methadone Screen Not Detected (NotDetected) Ur Propoxyphene Screen Not Detected (NotDetected) Ur Barbiturates Screen Not Detected (NotDetected) U Tricyclic Antidepress Not Detected (NotDetected) Ur Phencyclidine Scrn Not Detected (NotDetected) Ur Amphetamines Screen Not Detected (NotDetected) U Methamphetamines Scrn Not Detected (NotDetected) U Benzodiazepines Scrn Not Detected (NotDetected) Urine Cocaine Screen Not Detected (NotDetected) U Marijuana (THC) Screen Not Detected (NotDetected) 12/30/16 Range/Units 20:27 WBC (3.8-10.6) k/uL RBC (3.80-5.40) m/uL Hgb (11.4-16.0) gm/dL Hct (34.0-46.0) % MCV (80.0-100.0) fL MCH (25.0-35.0) pg MCHC (31.0-37.0) g/dL RDW (11.5-15.5) % Plt Count (150-450) k/uL Neutrophils % % Lymphocytes % % Monocytes % % Eosinophils % % Basophils % % Neutrophils # (1.3-7.7) k/uL Lymphocytes # (1.0-4.8) k/uL Monocytes # (0-1.0) k/uL Eosinophils # (0-0.7) k/uL Basophils # (0-0.2) k/uL Sodium (137-145) mmol/L Potassium (3.5-5.1) mmol/L Chloride (98-107) mmol/L Carbon Dioxide (22-30) mmol/L Anion Gap mmol/L BUN (7-17) mg/dL Creatinine (0.52-1.04) mg/dL Est GFR (MDRD) Af Amer (>60 ml/min/1.73 sqM) Est GFR (MDRD) Non-Af (>60 ml/min/1.73 sqM) Glucose (74-99) mg/dL POC Glucose (mg/dL) 86 (75-99) mg/dL POC Glu Dairy Science Teacher ID Yael Cherry Calcium (8.4-10.2) mg/dL Total Bilirubin (0.2-1.3) mg/dL AST (14-36) U/L ALT (9-52) U/L Alkaline Phosphatase (38-126) U/L Total Protein (6.3-8.2) g/dL Albumin (3.5-5.0) g/dL TSH (0.465-4.680) mIU/L Free T4 (0.78-2.19) ng/dL Urine Color Urine Appearance (Clear) Urine pH (5.0-8.0) Ur Specific [place] (1.001-1.035) Urine Protein (Negative) Urine Glucose (UA) (Negative) Urine Ketones (Negative) Urine Blood (Negative) Urine Nitrite (Negative) Urine Bilirubin (Negative) Urine Urobilinogen (<2.0) mg/dL Ur Leukocyte Esterase (Negative) Urine RBC (0-5) /hpf Urine WBC (0-5) /hpf Ur Squamous Epith Cells (0-4) /hpf Urine Bacteria (None) /hpf Urine Mucus (None) /hpf Urine Opiates Screen (NotDetected) Ur Oxycodone Screen (NotDetected) Urine Methadone Screen (NotDetected) Ur Propoxyphene Screen (NotDetected) Ur Barbiturates Screen (NotDetected) U Tricyclic Antidepress (NotDetected) Ur Phencyclidine Scrn (NotDetected) Ur Amphetamines Screen (NotDetected) U Methamphetamines Scrn (NotDetected) U Benzodiazepines Scrn (NotDetected) Urine Cocaine Screen (NotDetected) U Marijuana (THC) Screen (NotDetected) Disposition Clinical Impression: Myoclonus Disposition: HOME SELF-CARE Condition: Good Instructions: Adverse Drug Reaction (ED) Additional Instructions: Patient should reduce her Neurontin to just once a day and if her symptoms improve after one week she should stop it altogether. Patient should follow-up with her neurologist. Referrals: Josh Meade MD [Primary Care Provider] - 1-2 days Time of Disposition: 21:37
[2016-12-30] MEDS ORDERED: diphenhydrAMINE 50 MG/ML 1 ML VIAL IVP STA (20:03)
[2016-12-30 20:24] LABS: Basophils % (A) 0 %; CH 31.1; CHCM 33.2; Eosinophils # (A) 0.2 k/uL (0-0.7); Eosinophils % (A) 1 %; HCT 38.1 % (34.0-46.0); HDW 2.76; HGB 12.4 gm/dL (11.4-16.0); Luc # (Auto) 0.26; Luc % (Auto) 2; Lymphocytes # (A) 1.5 k/uL (1.0-4.8); Lymphocytes % (A) 13 %; MCH 30.6 pg (25.0-35.0); MCHC 32.6 g/dL (31.0-37.0); Mean Platelet Volume 6.5; Monocytes # (A) 0.8 k/uL (0-1.0); Monocytes % (A) 7 %; Neutrophils # (A) 8.8 k/uL (1.3-7.7); Neutrophils % (A) 77 %; RBC 4.06 m/uL (3.80-5.40); RDW 13.8 % (11.5-15.5); WBC 11.5 k/uL (3.8-10.6); WBC (Perox) 10.83
[2016-12-30 20:27] LABS: Appearance,Urine Clear (Clear); Bacteria,Urine Rare /hpf; Bilirubin,Urine Negative (Negative); Glucose,Urine (UA) Negative (Negative); Ketones,Urine 2+ (Negative); Leukocyte Esterase,Urine Large (Negative); Mucus,Urine Occasional /hpf; Nitrite,Urine Negative (Negative); Particle Count 5314; Protein,Urine Trace (Negative); RBC,Urine 4 /hpf (0-5); Squamous Epithelial Cell,Urine 1 /hpf (0-4); UA Billing (MACRO vs. MICRO) MICRO; Urobilinogen,Urine <2.0 mg/dL (<2.0); WBC,Urine 4 /hpf (0-5)
[2016-12-30 20:28] LABS: Glucose,Whole Blood 86 mg/dL (75-99)
[2016-12-30 20:37] LABS: Glucose 87 mg/dL (74-99); Total Protein 6.7 g/dL (6.3-8.2)
[2016-12-30 20:38] LABS: ALT 39 U/L (9-52); AST 36 U/L (14-36); Alkaline Phosphatase 115 U/L (38-126); Anion Gap 11 mmol/L; Blood Urea Nitrogen 12 mg/dL (7-17); Calcium 9.5 mg/dL (8.4-10.2); Carbon Dioxide 23 mmol/L (22-30); Chloride 109 mmol/L (98-107); Non-African American GFR(MDRD) >60 (>60 ml/min/1.73 sqM); Potassium 3.9 mmol/L (3.5-5.1); Sodium 143 mmol/L (137-145); Total Bilirubin 0.3 mg/dL (0.2-1.3)
[2016-12-30 21:30] VITALS: BP 144/83; PULSE 108; RESP 18; TEMP 98.3
== END 2016-12-30 21:45 | disposition home or self-care (01) ==
LOC: EC 19:02
DX: G25.3 Myoclonus (principal); Z87.891 Personal history of nicotine dependence; Z79.899 Other long term (current) drug therapy; Z88.2 Allergy status to sulfonamides; Z91.030 Bee allergy status; Z91.048 Other nonmedicinal substance allergy status
CPT/HCPCS: 36415; 93005; 84439; 80053; 84443; 85025; 81001; 80306; 87086; 99283; 96374; J1200

== ENCOUNTER → 2017-01-14 | Outpatient (CLI) | payer MEDICAID | END | disposition home or self-care (01) | LOC: LABWHC1 14:17 | PROVIDERS: ATTEND Psychiatry & Neurology Neurology | DX: E55.9 Vitamin D deficiency, unspecified (principal); I10 Essential (primary) hypertension; Z87.59 Personal history of other complications of pregnancy, childbirth and the puerperium | CPT/HCPCS: 36415; 82306; 82607; 84439; 84443 ==

== ENCOUNTER → 2017-03-17 | Outpatient (CLI) | payer MEDICAID ==
--- NOTE | 2017-03-17 14:43 | MR ---
EXAMINATION TYPE: MR lumbar spine wo con DATE OF EXAM: 03/17/2017 COMPARISON: MRI lumbar spine June 16, 2016 HISTORY: Intervertebral disc degeneration, lumbar per order. Right-sided back pain causing pain into legs and numbness into feet for 4 months per patient. TECHNIQUE: Multiplanar, multisequence imaging of the lumbar spine is performed without IV contrast. FINDINGS: Survey images redemonstrates dextroconvex scoliosis centered in the upper lumbar spine. Sag ittal images of the lumbar spine show vertebral body heights to remain satisfactory. Multilevel disc desiccation is redemonstrated. There is persistent moderate disc space narrowing L3-L4 and L4-L5 leve ls. There is persistent advanced disc space narrowing L5-S1 level with heterogeneous Modic type II de generative change redemonstrated. Multilevel posterior disc herniations are redemonstrated on sagitta l images. The conus medullaris remains normal in position and signal ending at mid L1 level. Mild to moderate multilevel anterior spurring is redemonstrated. Axial images show the T12-L1 level to remain within normal limits. Axial images at L1-L2 level redemonstrated moderate broad disc posterior disc protrusion anterior the gustavo sac, bilateral neural foramina are patent. Mild facet arthropathy bilaterally is redemonstrated. No significant change from prior. Axial images at L2-L3 level show mild to moderate broad disc bulge effacing anterior thecal sac bilat eral neural foramina remain patent. No significant change from prior. Axial images at L3-L4 level show moderate broad disc bulge effacing anterior thecal sac on axial imag e 13. There is mild facet degenerative changes and ligamentum flavum hypertrophy effacing posterior l ateral thecal sac at this level. There is mild to moderate bilateral neural foraminal narrowing at th is level redemonstrated, left greater than right. No significant change from prior. Axial images at L4-L5 level show broad-based right paracentral/foraminal disc protrusion effacing ant erolateral thecal sac and causing moderate right inferior neural foraminal narrowing seen best sagitt al image 12. Left-sided neural foramina shows mild inferior narrowing. There are mild to moderate fac et degenerative changes and ligamentum flavum hypertrophy redemonstrated. No significant change from prior. Axial images at L5-S1 level show mild facet degenerative changes bilaterally. There is broad disc bul ge seen. There is mild bilateral inferior neural foraminal narrowing redemonstrated. There is subcentimeter stable T2 hyperintense lesion axial image 26 posterior right hepatic lobe and tiny T2 hyperintense focus posteriorly right kidney on same image both likely reflecting simple cysts redemonstrated stable from prior. Common bile duct measures 10 mm in diameter which is mild to moder ately dilated axial image 26 with gradual tapering towards ampulla, this was also enlarged on prior. IMPRESSION: Multilevel degenerative changes in lumbar spine as detailed above without significant em nge or progression from prior MRI.
== END | disposition home or self-care (01) ==
LOC: RADMRIMAIN 13:52
PROVIDERS: ATTEND Psychiatry & Neurology Neurology
DX: M47.817 Spondylosis without myelopathy or radiculopathy, lumbosacral region (principal)
CPT/HCPCS: 72148

== ENCOUNTER → 2017-11-05 | Outpatient (CLI) | payer MEDICAID ==
--- NOTE | 2017-11-05 10:51 | US ---
EXAMINATION TYPE: US mass soft tissue chest/back DATE OF EXAM: 11/05/2017 COMPARISON: NONE CLINICAL HISTORY: R22.2 Chest Nodule. Palpable noted medial left subclavicular /chest Small hyperechoic foci internally and in periphery of prominence at patient's palpable and as compare d to right medial chest at same level. IMPRESSION: Nonspecific nodule. Consider thin section CT with contrast.
== END | disposition home or self-care (01) ==
LOC: RADUSWWP 10:14
PROVIDERS: ATTEND Family Medicine
DX: R91.1 Solitary pulmonary nodule (principal)

== ENCOUNTER → 2017-11-26 | Outpatient (CLI) | payer MEDICAID ==
--- NOTE | 2017-11-26 16:12 | CT ---
EXAMINATION TYPE: CT chest w con DATE OF EXAM: 11/26/2017 COMPARISON: Recent chest ultrasound November 05, 2017 HISTORY: Left sided lump marked by BB on upper Chest. Chest nodule per order. CT DLP: 252.2 mGycm. Automated Exposure Control for Dose Reduction was Utilized. TECHNIQUE: CT scan of the thorax is performed following with IV Contrast, patient injected with 100 mL of Isovue 300. FINDINGS: Metallic BB is placed at level of patient's palpable abnormality left supraclavicular regio n just superior to the proximal clavicle axial image 4. Inferior sternocleidomastoid mastoid muscle i s seen at this level without suspicious abnormality. No worrisome solid or cystic mass or fluid colle ction is seen on CT. There is skinfold noted at this level without suspicious skin thickening visuali zed portion of proximal clavicle and sternoclavicular joint are unremarkable symmetric to opposite ri ght side. Visualized portion of thyroid just above this is somewhat small in size. LUNGS: The lungs are grossly clear, there is no concerning parenchymal mass or nodule identified. T here is no pleural effusion or pneumothorax seen. The tracheobronchial tree is patent. MEDIASTINUM: There are no greater than 1 cm hilar or mediastinal lymph nodes. No cardiomegaly or pe ricardial effusion is seen. OTHER: There is S-shaped scoliosis of the thoracolumbar spine. There is mild to moderate multilevel a nterior and lateral spurring in the mid to lower thoracic spine. IMPRESSION: No suspicious solid or cystic mass at area of clinical and ultrasound concern medial left upper chest/lower neck.
== END | disposition home or self-care (01) ==
LOC: RADCTMAIN 15:22
PROVIDERS: ATTEND Family Medicine
DX: R22.2 Localized swelling, mass and lump, trunk (principal)
CPT/HCPCS: 71260; Q9967

== ENCOUNTER → 2018-07-27 | Outpatient (CLI) | payer MEDICAID | END | disposition home or self-care (01) | LOC: LABWHC1 14:51 | PROVIDERS: ATTEND Family Medicine | DX: I10 Essential (primary) hypertension (principal) | CPT/HCPCS: 36415; 84443 ==

== ENCOUNTER 2019-07-31 20:36 | Emergency (ER) | payer MEDICAID ==
[2019-07-31 20:47] VITALS: TEMP 98.1
[2019-07-31] MEDS ORDERED: KETOROLAC 30 MG/ML 1 ML VIAL IM STA (21:13)
[2019-07-31] MEDS ORDERED: FAMOTIDINE 20 MG TAB PO STA (21:13)
--- NOTE | 2019-07-31 21:14 | ED ---
Recheck HPI - General Chief Complaint: Recheck/Abnormal Lab/Rx Stated Complaint: L Leg Pain Time Seen by Provider: 07/31/19 20:49 Source: patient Mode of arrival: ambulatory - History of Present Illness Initial Comments: Patient is a 58-year-old female presenting to emergency Department with a chief complaint of left hip pain. Patient states about 3 weeks ago she was jumping o galo her dog when she suspects that she strained her hip. Patient states she went to her primary care who prescribed her 2 rounds of prednisone Dosepaks. Patient reports as soon as the steroid pack tapers down, her pain returns. Reports the pain is exacerbated with ambulation and weightbearing. Reports the pain is alleviated rest. Reports taking [id number] Tylenol with minimal improvement in symptoms. Reports the pain radiates distally from the left hip to the knee. Denies any erythema or ecchymosis. States the pain is sharp in nature. She denies any back pain or abdominal pain. - Related Data Home Medications Medication Instructions Recorded Confirmed Ibuprofen [Motrin] 400 mg PO BID PRN 03/16/16 12/30/16 rOPINIRole HCL [Requip] 1 mg PO HS 12/23/16 12/30/16 Previous Rx's Medication Instructions Recorded Gabapentin [Neurontin] 300 mg PO TID #90 cap 09/21/16 HYDROcodone/APAP 10-325MG [[place] 1 each PO BID PRN #30 tab 12/04/16 10-325] Levothyroxine Sodium [Synthroid] 75 mcg PO 0630 #30 tab 12/04/16 tiZANidine [Zanaflex] 2 mg PO TID PRN #60 tab 12/04/16 Allergies Allergy/AdvReac Type Severity Reaction Status Date / Time gluten Allergy swelling Verified 07/31/19 20:47 of thyroid venom-honey bee Allergy Anaphylaxis Verified 07/31/19 20:47 [bee venom (honey bee)] Sulfa (Sulfonamide AdvReac Diarrhea Verified 07/31/19 20:47 Antibiotics) Review of Systems ROS Statement: Those systems with pertinent positive or pertinent negative responses have been documented in the HPI. ROS Other: All systems not noted in ROS Statement are negative. Past Medical History Past Medical History: Fibromyalgia, Hyperlipidemia, Osteoarthritis (OA), Thyroid Disorder Additional Past Medical History / Comment(s): Pt states that about 3 days ago she started having jerky, uncontrollable movements along with muscle spasms and clenching of her teeth. She has also started having difficulty swallowing solids and liquids. Other hx: cervical and back disc disease/herniations, R sided sciatica, migraines, numbness/tingling bilateral hands/fingers and feet, lately elevated blood pressure, hypothyroid. History of Any Multi-Drug Resistant Organisms: None Reported Past Surgical History: Orthopedic Surgery, Tonsillectomy, Tubal Ligation Additional Past Surgical History / Comment(s): Numerous [facility] procedures with last time being 11/16/16 lumbar facet block, right carpal tunnel release, right shoulder arthroscopic sx for impingement. Past Anesthesia/Blood Transfusion Reactions: No Reported Reaction, Postoperative Nausea & Vomiting (PONV) Past Psychological History: Anxiety Smoking Status: Former smoker Past Alcohol Use History: Occasional Past Drug Use History: None Reported - Past Family History Mother Family Medical History: No Reported History Additional Family Medical History / Comment(s): Mother is healthy. Father Family Medical History: Dementia Additional Family Medical History / Comment(s): Father from alzheimers. General Exam Limitations: no limitations General appearance: alert, in no apparent distress Head exam: Present: atraumatic, normocephalic, normal inspection Eye exam: Present: normal appearance, PERRL, EOMI Pupils: Present: normal accommodation ENT exam: Present: normal exam, normal oropharynx, mucous membranes moist Neck exam: Present: normal inspection, full ROM. Absent: tenderness Respiratory exam: Present: normal lung sounds bilaterally. Absent: respiratory distress Cardiovascular Exam: Present: regular rate, normal rhythm, normal heart sounds GI/Abdominal exam: Present: soft, normal bowel sounds. Absent: distended, tenderness, guarding, rebound Extremities exam: Present: normal inspection, full ROM (Pain with full range of motion), tenderness (Tenderness at the lateral and anterior aspect of the left hip.), normal capillary refill, other (+2 dorsalis pedis and posterior tibialis bilaterally.). Absent: pedal edema, joint swelling, calf tenderness (Negative Homans bilaterally.) Back exam: Present: normal inspection, full ROM. Absent: tenderness, CVA tenderness (R), CVA tenderness (L), paraspinal tenderness, vertebral tenderness Neurological exam: Present: alert, oriented X3 Psychiatric exam: Present: normal affect, normal mood Skin exam: Present: warm, dry, intact, normal color Course Vital Signs 07/31/19 07/31/19 20:42 21:35 Temperature 98.1 F Pulse Rate 76 89 Respiratory 19 18 Rate Blood Pressure 156/99 137/97 O2 Sat by Pulse 97 98 Oximetry Medical Decision Making - Medical Decision Making Patient is 58-year-old female presenting to emergency Department with a chief complaint of left hip pain. Symptoms are not one for about 3 weeks. Exam patient is neurovascularly intact. She is able to ambulate. Pain exacerbated with ambulation. During her steroid course the pain has improved here and I suspect this is inflammatory dependent condition. No back pain. No signs or symptoms of a DVT. I suspect this is hip bursitis. X-rays unremarkable. Patient given Toradol in the ED with improvement in symptoms. Return parameters thoroughly discussed the patient is understanding and agreeable. Case discussed with physician. Disposition Clinical Impression: Left hip pain, Hip bursitis, left Disposition: HOME SELF-CARE Condition: Stable Instructions (If sedation given, give patient instructions): Hip Bursitis (ED) Additional Instructions: Follow with primary care. Alternate between Tylenol and Motrin for pain control. Return to emergency department if symptoms worsen. Is patient prescribed a controlled substance at d/c from ED?: No Referrals: Josh Meade MD [Primary Care Provider] - 1-2 days Time of Disposition: 21:56
--- NOTE | 2019-07-31 21:27 | XR ---
Left hip HISTORY: Left hip pain, trauma 3 weeks prior 2 views of the left hip Surgical clips noted in the left hemipelvis. Bone mineralization, joint spaces and alignment are main tained. IMPRESSION: No fracture or dislocation. MRI may be of benefit
[2019-07-31 21:36] VITALS: BP 137/97; PULSE 89; RESP 18
== END 2019-07-31 22:17 | disposition home or self-care (01) ==
LOC: EC 20:36
DX: M70.72 Other bursitis of hip, left hip (principal); Z79.899 Other long term (current) drug therapy; Z88.2 Allergy status to sulfonamides; Z91.030 Bee allergy status; Z91.018 Allergy to other foods; Z87.891 Personal history of nicotine dependence
CPT/HCPCS: 73502; 99283; 96372; J1885

== ENCOUNTER 2020-03-10 14:48 | Emergency (ER) | payer MEDICAID ==
[2020-03-10 15:04] VITALS: BP 129/79; PULSE 87; RESP 18; TEMP 98.4
[2020-03-10] MEDS ORDERED: ONDANSETRON 4 MG/2 ML VIAL IVP STA (15:37)
[2020-03-10] MEDS ORDERED: SODIUM CHLORIDE 0.9% 1,000 ML IV STA (15:37)
--- NOTE | 2020-03-10 15:37 | ED ---
Nausea/Vomiting/Diarrhea HPI - General Chief complaint: Nausea/Vomiting/Diarrhea Stated complaint: Vomiting Time Seen by Provider: 03/10/20 15:12 Source: patient Mode of arrival: ambulatory Limitations: no limitations - History of Present Illness Initial comments: 56-year-old male presenting to emergency Department with chief complaint of nausea vomiting and body aches. Patient reports one week ago she was exposed to a coworker tested positive for coronavirus. Patient states she has been relatively asymptomatic for the past week but while she was on her way to work today, she developed sudden onset of nausea vomiting. Patient reports she continues to feel nauseated. She does report generalized body aches and chills. Denies any fevers. Denies any abdominal pain diarrhea or constipation. She denies any chest pain or shortness of breath. Denies any loss of taste or smell. Denies any URI like symptoms. Denies any coughing, smoking or history of asthma. Denies any headaches, blurry vision, onset of weakness and paresthesias. - Related Data Home Medications Medication Instructions Recorded Confirmed ALPRAZolam [Xanax] 0.5 mg PO TID PRN 03/10/20 03/10/20 Diclofenac Sodium [Voltaren] 75 mg PO HS 03/10/20 03/10/20 HYDROcodone/APAP 10-325MG [[place] 1 tab PO TID PRN 03/10/20 03/10/20 10-325] Ibuprofen [Motrin Ib] 400 - 800 mg PO Q8H PRN 03/10/20 03/10/20 Levothyroxine Sodium [Synthroid] 75 mcg PO DAILY@0630 03/10/20 03/10/20 Previous Rx's Medication Instructions Recorded Ondansetron Odt [Zofran Odt] 4 mg PO Q8HR PRN #20 tab 03/10/20 Allergies Allergy/AdvReac Type Severity Reaction Status Date / Time gluten Allergy swelling Verified 03/10/20 16:10 of thyroid venom-honey bee Allergy Anaphylaxis Verified 03/10/20 16:10 [bee venom (honey bee)] Sulfa (Sulfonamide AdvReac Diarrhea Verified 03/10/20 16:10 Antibiotics) Review of Systems ROS Statement: Those systems with pertinent positive or pertinent negative responses have been documented in the HPI. ROS Other: All systems not noted in ROS Statement are negative. Past Medical History Past Medical History: Fibromyalgia, Hyperlipidemia, Osteoarthritis (OA), Thyroid Disorder Additional Past Medical History / Comment(s): Pt states that about 3 days ago she started having jerky, uncontrollable movements along with muscle spasms and clenching of her teeth. She has also started having difficulty swallowing solids and liquids. Other hx: cervical and back disc disease/herniations, R sided sciatica, migraines, numbness/tingling bilateral hands/fingers and feet, lately elevated blood pressure, hypothyroid. History of Any Multi-Drug Resistant Organisms: None Reported Past Surgical History: Orthopedic Surgery, Tonsillectomy, Tubal Ligation Additional Past Surgical History / Comment(s): Numerous [facility] proce teodoro with last time being 11/16/16 lumbar facet block, right carpal tunnel release, right shoulder arthroscopic sx for impingement. Past Anesthesia/Blood Transfusion Reactions: No Reported Reaction, Postoperative Nausea & Vomiting (PONV) Past Psychological History: Anxiety Smoking Status: Never smoker Past Alcohol Use History: Occasional Past Drug Use History: None Reported - Past Family History Mother Family Medical History: No Reported History Additional Family Medical History / Comment(s): Mother is healthy. Father Family Medical History: Dementia Additional Family Medical History / Comment(s): Father from alzheimers. General Exam Limitations: no limitations General appearance: alert, in no apparent distress Head exam: Present: atraumatic, normocephalic, normal inspection Eye exam: Present: normal appearance, PERRL, EOMI Pupils: Present: normal accommodation ENT exam: Present: normal exam, normal oropharynx, mucous membranes moist Neck exam: Present: normal inspection, full ROM. Absent: tenderness Respiratory exam: Present: normal lung sounds bilaterally. Absent: respiratory distress, wheezes, rales, rhonchi, stridor Cardiovascular Exam: Present: regular rate, normal rhythm, normal heart sounds GI/Abdominal exam: Present: soft. Absent: distended, tenderness, guarding, rebound Extremities exam: Present: normal inspection, full ROM, normal capillary refill. Absent: tenderness, pedal edema, joint swelling Back exam: Present: normal inspection, full ROM. Absent: tenderness, CVA tenderness (R), CVA tenderness (L) Neurological exam: Present: alert, oriented X3 Psychiatric exam: Present: normal affect, normal mood Skin exam: Present: warm, dry, intact, normal color Course Vital Signs 01/24/21 15:01 Temperature 98.4 F Pulse Rate 87 Respiratory 18 Rate Blood Pressure 129/79 O2 Sat by Pulse 99 Oximetry Medical Decision Making - Medical Decision Making 59-year-old female presenting to emergency Department chief complaint of nausea and vomiting. On physical examination, patient was actively vomiting. Her lungs are clear to auscultation. The rest of exam is unremarkable. CBC CMP UA unremarkable. Coronavirus and influenza negative. Patient was given IV fluids and antiemetics. EKG showing sinus rhythm and no ST or T-wave changes. On reevaluation, patient reports significant improvement in symptoms. She will be discharged with a Zofran starter pack and a 10 day course of Zofran. Patient was advised to drink plenty of fluids. I do suspect viral syndrome in this patient diarrhea causing her constitutional symptoms as well as nausea or vomiting. Strict return parameters were thoroughly discussed the patient was understanding and agreeable. Case discussed with physician. - Lab Data Result diagrams: 03/10/20 15:51 03/10/20 15:51 Lab Results 03/10/20 03/10/20 03/10/20 Range/Units 15:51 15:51 15:56 WBC 6.1 (3.8-10.6) k/uL RBC 4.31 (3.80-5.40) m/uL Hgb 13.8 (11.4-16.0) gm/dL Hct 39.7 (34.0-46.0) % MCV 92.1 (80.0-100.0) fL MCH 32.1 (25.0-35.0) pg MCHC 34.8 (31.0-37.0) g/dL RDW 12.9 (11.5-15.5) % Plt Count 233 (150-450) k/uL MPV 7.0 Neutrophils % 66 % Lymphocytes % 24 % Monocytes % 5 % Eosinophils % 2 % Basophils % 1 % Neutrophils # 4.0 (1.3-7.7) k/uL Lymphocytes # 1.5 (1.0-4.8) k/uL Monocytes # 0.3 (0-1.0) k/uL Eosinophils # 0.2 (0-0.7) k/uL Basophils # 0.1 (0-0.2) k/uL Sodium 139 (137-145) mmol/L Potassium 3.7 (3.5-5.1) mmol/L Chloride 107 (98-107) mmol/L Carbon Dioxide 24 (22-30) mmol/L Anion Gap 8 mmol/L BUN 18 H (7-17) mg/dL Creatinine 0.64 (0.52-1.04) mg/dL Est GFR (CKD-EPI)AfAm >90 (>60 ml/min/1.73 sqM) Est GFR (CKD-EPI)NonAf >90 (>60 ml/min/1.73 sqM) Glucose 97 (74-99) mg/dL Calcium 9.6 (8.4-10.2) mg/dL Total Bilirubin 0.4 (0.2-1.3) mg/dL AST 20 (14-36) U/L ALT 16 (4-34) U/L Alkaline Phosphatase 100 (38-126) U/L Total Protein 6.8 (6.3-8.2) g/dL Albumin 4.2 (3.5-5.0) g/dL Lipase 42 (23-300) U/L Urine Color Urine Appearance (Clear) Urine pH (5.0-8.0) Ur Specific [place] (1.001-1.035) Urine Protein (Negative) Urine Glucose (UA) (Negative) Urine Ketones (Negative) Urine Blood (Negative) Urine Nitrite (Negative) Urine Bilirubin (Negative) Urine Urobilinogen (<2.0) mg/dL Ur Leukocyte Esterase (Negative) Coronavirus (PCR) Not Detected (Not Detectd) Influenza Type A RNA (Not Detectd) Influenza Type B (PCR) (Not Detectd) 03/10/20 03/10/20 Range/Units 15:56 16:04 WBC (3.8-10.6) k/uL RBC (3.80-5.40) m/uL Hgb (11.4-16.0) gm/dL Hct (34.0-46.0) % MCV (80.0-100.0) fL MCH (25.0-35.0) pg MCHC (31.0-37.0) g/dL RDW (11.5-15.5) % Plt Count (150-450) k/uL MPV Neutrophils % % Lymphocytes % % Monocytes % % Eosinophils % % Basophils % % Neutrophils # (1.3-7.7) k/uL Lymphocytes # (1.0-4.8) k/uL Monocytes # (0-1.0) k/uL Eosinophils # (0-0.7) k/uL Basophils # (0-0.2) k/uL Sodium (137-145) mmol/L Potassium (3.5-5.1) mmol/L Chloride (98-107) mmol/L Carbon Dioxide (22-30) mmol/L Anion Gap mmol/L BUN (7-17) mg/dL Creatinine (0.52-1.04) mg/dL Est GFR (CKD-EPI)AfAm (>60 ml/min/1.73 sqM) Est GFR (CKD-EPI)NonAf (>60 ml/min/1.73 sqM) Glucose (74-99) mg/dL Calcium (8.4-10.2) mg/dL Total Bilirubin (0.2-1.3) mg/dL AST (14-36) U/L ALT (4-34) U/L Alkaline Phosphatase (38-126) U/L Total Protein (6.3-8.2) g/dL Albumin (3.5-5.0) g/dL Lipase (23-300) U/L Urine Color Yellow Urine Appearance Clear (Clear) Urine pH 6.5 (5.0-8.0) Ur Specific [place] 1.025 (1.001-1.035) Urine Protein Trace H (Negative) Urine Glucose (UA) Negative (Negative) Urine Ketones Negative (Negative) Urine Blood Negative (Negative) Urine Nitrite Negative (Negative) Urine Bilirubin Negative (Negative) Urine Urobilinogen <2.0 (<2.0) mg/dL Ur Leukocyte Esterase Negative (Negative) Coronavirus (PCR) (Not Detectd) Influenza Type A RNA Not Detected (Not Detectd) Influenza Type B (PCR) Not Detected (Not Detectd) - EKG Data EKG Comments: Sinus rhythm, no ST or T-wave changes Ventricular rate 72, VA 136, QRS 84, QTC 455. Disposition Clinical Impression: Nausea & vomiting, Body aches, Exposure to COVID-19 virus Disposition: HOME SELF-CARE Condition: Stable Instructions (If sedation given, give patient instructions): Acute Nausea and Vomiting (ED) Additional Instructions: Take prescribed medication as directed. Follow-up with primary care physician. Return to emergency department if symptoms worsen. Prescriptions: Ondansetron Odt [Zofran Odt] 4 mg PO Q8HR PRN #20 tab PRN Reason: Nausea Is patient prescribed a controlled substance at d/c from ED?: No Referrals: Josh Meade MD [Primary Care Provider] - 1-2 days Time of Disposition: 16:54
[2020-03-10 15:57] LABS: Basophils # (A) 0.1 k/uL (0-0.2); Basophils % (A) 1 %; Eosinophils # (A) 0.2 k/uL (0-0.7); Eosinophils % (A) 2 %; HCT 39.7 % (34.0-46.0); HGB 13.8 gm/dL (11.4-16.0); Lymphocytes # (A) 1.5 k/uL (1.0-4.8); Lymphocytes % (A) 24 %; MCH 32.1 pg (25.0-35.0); MCHC 34.8 g/dL (31.0-37.0); MCV 92.1 fL (80.0-100.0); Monocytes # (A) 0.3 k/uL (0-1.0); Monocytes % (A) 5 %; Neutrophils % (A) 66 %; Platelet Count 233 k/uL (150-450); RBC 4.31 m/uL (3.80-5.40); RDW 12.9 % (11.5-15.5); WBC 6.1 k/uL (3.8-10.6)
[2020-03-10 16:18] LABS: Appearance,Urine Clear (Clear); Bilirubin,Urine Negative (Negative); Blood,Urine Negative (Negative); Color,Urine Yellow; Glucose,Urine (UA) Negative (Negative); Ketones,Urine Negative (Negative); Leukocyte Esterase,Urine Negative (Negative); Nitrite,Urine Negative (Negative); PH, Urine 6.5 (5.0-8.0); Protein,Urine Trace (Negative); Specific Gravity,Urine 1.025 (1.001-1.035); Urobilinogen,Urine <2.0 mg/dL (<2.0)
[2020-03-10 16:19] LABS: ALT 16 U/L (4-34); AST 20 U/L (14-36); African American GFR (CKD) >90 (>60 ml/min/1.73 sqM); Albumin 4.2 g/dL (3.5-5.0); Alkaline Phosphatase 100 U/L (38-126); Anion Gap 8 mmol/L; Blood Urea Nitrogen 18 mg/dL (7-17); Calcium 9.6 mg/dL (8.4-10.2); Carbon Dioxide 24 mmol/L (22-30); Chloride 107 mmol/L (98-107); Glucose 97 mg/dL (74-99); Lipase 42 U/L (23-300); Non-African American GFR(CKD) >90 (>60 ml/min/1.73 sqM); Potassium 3.7 mmol/L (3.5-5.1); Sodium 139 mmol/L (137-145); Total Bilirubin 0.4 mg/dL (0.2-1.3); Total Protein 6.8 g/dL (6.3-8.2)
[2020-03-10] MEDS ORDERED: ONDANSETRON 4 MG ODT STARTER PACK 2 TAB BTL PO STA (16:54)
== END 2020-03-10 17:30 | disposition home or self-care (01) ==
LOC: EC 14:48
DX: R11.2 Nausea with vomiting, unspecified (principal); R52 Pain, unspecified; F41.9 Anxiety disorder, unspecified; M19.90 Unspecified osteoarthritis, unspecified site; Z20.822 Contact with and (suspected) exposure to COVID-19; E03.9 Hypothyroidism, unspecified; Z79.890 Hormone replacement therapy; Z79.899 Other long term (current) drug therapy; Z79.1 Long term (current) use of non-steroidal anti-inflammatories (NSAID); Z88.2 Allergy status to sulfonamides; Z91.030 Bee allergy status; Z91.048 Other nonmedicinal substance allergy status; Z86.69 Personal history of other diseases of the nervous system and sense organs
CPT/HCPCS: 36415; 93005; 80053; 83690; 85025; 81003; 87502; 87635; 99283; 96374; 96361; J2405; S0119

== ENCOUNTER → 2020-06-21 | Outpatient (CLI) | payer MEDICAID ==
[2020-06-21 23:00] LABS: Chol/HDL Ratio 4.16; LDL Cholesterol,Calculated 137.6 mg/dL (0.0-131.0); VLDL Calculation 17.4 mg/dL (5.00-40.00)
== END | disposition home or self-care (01) ==
LOC: LABWHC1 13:32
PROVIDERS: ATTEND Family Medicine
DX: I10 Essential (primary) hypertension (principal)
CPT/HCPCS: 36415; 80061; 84443

== ENCOUNTER → 2021-10-21 | Outpatient (CLI) | payer MEDICAID ==
--- NOTE | 2021-10-21 12:51 | MR ---
EXAMINATION TYPE: MR lumbar spine wo con DATE OF EXAM: 10/21/2021 COMPARISON: Prior MRI lumbar spine March 17, 2017 HISTORY: Lower back pain, LLE radiculopathy x 3 years. TECHNIQUE: Multiplanar, multisequence imaging of the lumbar spine is performed without IV contrast. FINDINGS: There is persistent dextroconvex scoliosis centered at L2-L3 level. Sagittal images of the lumbar spine show vertebral body heights to remain satisfactory. There is slight grade 1 retrolisthes is L2 on L3 and to lesser degree L3 on L4 on current study. Multilevel disc desiccation is redemonstr ated. There is persistent moderate disc space narrowing L3-L4 and L4-L5 levels. There is persistent a dvanced disc space narrowing L5-S1 level with heterogeneous Modic type II degenerative change redemon strated. Mild to moderate disc space narrowing and spurring left L2-L3 level is now present. Mild to moderate disc space narrowing and spurring L1-L2 level is now seen. The conus medullaris remains norm al in position and signal ending at mid L1 level. Scattered small Schmorl nodes redemonstrated. Axial images show the T12-L1 level to remain within normal limits. Axial images at L1-L2 level show moderate broad disc posterior disc protrusion effacing anterior thec al sac, mild facet arthropathy and ligamentum flavum hypertrophy effacing posterior lateral thecal sa c. New right foraminal disc protrusion component sagittal image 13 causes mild anterior inferior neur al foraminal narrowing. Findings progressed from prior MRI. Axial images at L2-L3 level show subtle spondylolisthesis with mild to moderate moderate broad disc b ulge effacing anterior thecal sac. There is mild/moderate facet arthropathy and ligamentum flavum hyp ertrophy effacing the posterolateral thecal sac greater on the left on current study. There is modera te left-sided neural foraminal narrowing. Degenerative Findings progressed from 2018 MRI. Axial images at L3-L4 level show moderate broad disc bulge effacing anterior thecal sac on axial imag e 15. There is mild to moderate facet degenerative changes and ligamentum flavum hypertrophy effacing posterior lateral thecal sac at this level. There is moderate left-sided neural foraminal narrowing on current study more prominent from prior. Mild right-sided neural foraminal narrowing is fairly sta ble. Axial images at L4-L5 level show broad-based right paracentral/foraminal disc protrusion effacing ant erolateral thecal sac and causing mild to moderate right inferior neural foraminal narrowing seen bes t sagittal image 13 similar to prior. Left-sided neural foramina shows stable mild inferior narrowing . There are moderate facet arthropathy and ligamentum flavum hypertrophy effacing the posterolateral thecal sac more prominent on the current study from prior MRI. Axial images at L5-S1 level show mild to moderate facet arthropathy bilaterally. There is tiny centra l disc protrusion minimally effacing anterior thecal sac. There is mild to moderate right greater rosalio n left neural foraminal narrowing more prominent from 2018 MRI. There is subcentimeter stable T2 hyperintense lesion axial image 33 posterior right hepatic lobe favo ring benign thin-walled cyst. Common bile duct measures 10 mm in diameter towards the adriana hepatis w hich is mild to moderately dilated axial image 33 with gradual tapering towards ampulla, this is unch anged from prior MRI. IMPRESSION: Scoliosis and Multilevel degenerative changes in lumbar spine as detailed above with inte rval degenerative progression from 2018 MRI noted as detailed above.
== END | disposition home or self-care (01) ==
LOC: RADMRIMAIN 12:02
PROVIDERS: ATTEND Physician Assistant Medical
DX: M47.27 Other spondylosis with radiculopathy, lumbosacral region (principal); M51.17 Intervertebral disc disorders with radiculopathy, lumbosacral region; M99.74 Connective tissue and disc stenosis of intervertebral foramina of sacral region; M43.16 Spondylolisthesis, lumbar region
CPT/HCPCS: 72148

== ENCOUNTER → 2021-12-25 | Outpatient (CLI) | payer MEDICAID ==
[2021-12-25 14:08] VITALS: BP 145/91; PULSE 71; RESP 16; TEMP 98.1
--- NOTE | 2021-12-29 13:27 | P.PAINPG ---
PQRS Measure Charge Sheet Comment: A 61 yr old female with a history of severe and chronic LBP secondary to lumbar DDD and spondylosis with facet arthropathy without myelopathy presents today for evaluation of MRI results. Pain level is at 9/10 in intensity w provocation, constant, localized in L lower lumbar spine, sharp in character w shooting towards the LLE. Pain is provoked by walking/ bending for periods of 15 min or more. Pain is alleviated with heat, medications (Oral Diclofenac, [place] from Dr Meade), topical CBD, laying supine and rest. Interventional pain procedures completed include LESIs Patient is currently on [place], Diclofenac oral Patient denies any side effects of the medication(s), denies excessive drowsiness or sleepiness, denies suicidal ideation and reports that the current pain medication is helping to control the pain and improve activities of daily living. Patient denies any motor or sensory deficits. Patient denies any fever or night sweats, denies any change in the bowel movements or urination. Physical Examination: -Constitutional: Cooperative. Not in acute distress . - Neurologic: Cranial nerve II to XII intact. No focal neurological deficits. - Psychatric: Alert & oriented x 3. Matching mood & appropriate affect. Judgment and insight intact. - Musculoskeletal: Cervical spine: Muscle bulk/ tone/ strength in the bilateral upper extremities normal Vertebral body tenderness to palpation over Sp[place]ling test positive Distraction test positive Facet loading test positive Thoracic spine Muscle bulk / tone/ strength in the bilateral paraspinal muscles normal Vertebral body tender to palpation over Facet loading test positive Lumbar spine: Motor bulk/ tone/ strength lower extremities , thigh and legs : 5/5 Deep tendon reflexes : Normal Knee Jerk. Normal Ankle Jerk . Vertebral body tenderness to palpation over L4 Lumbar Facet Loading Test positive Straight Leg Raise: positive at 30 degrees right side/ left side Gaenslen's Test positive Sacral spine : Severe tenderness over the Sacroiliac joint: right side / left side Range of motion: Flexion of the lumbar spine <60 degrees Range of motion: Extension of the lumbar spine <20 degrees Gaenslen's Test positive Shwetha test: positive right side / left side Thigh Thrust Test Sacral Thrust Test Imaging: MRI without contrast of the lumbar spine from 10/21/21 reviewed Assessment and plan: Chronic LBP secondary to lumbar DDD, spondylolisthesis with facet arthropathy without myelopathy Recommendation of GRAZYNA L4-L5 #1. May need a series of injections, up to 3 within a 6 mo period, for optimal pain relief. Risks, benefits of procedure discussed and pt verbalized understanding. Denies anticoagulant use or medical history of diabetes. All patient questions answered I have spent less than 30 minutes on patient care today. Dr Parra was available by phone for the evaluation of this patient. The time was used to review the medical records including relevant urine studies and Prescription history (MAPs), review of the available imaging, evaluation and examination of the patient, coordination of care with the medical staff and if applicable referring physicians, as well as creation of the medical record - Pain Location Left Lower Back Non-Pharmacological Interventions: Environmental Control, Heat, Home Exercise, Position/Reposition, Stretching Pharmacological Interventions: Epidural, Scheduled Medication PQRS Narrative: Smoking Status Former smoker Hx Alcohol Use (MH) Yes Home Medications: Ambulatory Orders ALPRAZolam [Xanax] 0.5 mg PO TID PRN 03/10/20 Diclofenac Sodium [Voltaren] 75 mg PO HS 03/10/20 HYDROcodone/APAP 10-325MG [[place] 10-325] 1 tab PO TID PRN 03/10/20 Ibuprofen [Motrin Ib] 400 - 800 mg PO Q8H PRN 03/10/20 Levothyroxine Sodium [Synthroid] 75 mcg PO DAILY@0630 03/10/20 Ondansetron Odt [Zofran Odt] 4 mg PO Q8HR PRN #20 tab 03/10/20 Controlled Substance Measures - Controlled Substance Measures Is patient prescribed a controlled substance at discharge?: No
== END ==
LOC: PNWHC3 13:27
PROVIDERS: ATTEND Specialist
DX: M43.16 Spondylolisthesis, lumbar region (principal); M51.36 Other intervertebral disc degeneration, lumbar region; G89.29 Other chronic pain; Z87.891 Personal history of nicotine dependence; Z88.2 Allergy status to sulfonamides; Z91.030 Bee allergy status; Z91.018 Allergy to other foods
CPT/HCPCS: 99211

== ENCOUNTER → 2021-12-25 | Outpatient (CLI) | payer MEDICAID ==
[2021-12-25 22:29] LABS: HGB 12.6 g/dL (12.0-15.0); MCH 30.9 pg (27.0-32.0); MCHC 31.5 g/dL (32.0-37.0); Mean Platelet Volume 9.7 fL (9.5-12.2); NRBC Per 100 WBC 0 /100 WBCS (0.0-0.0); Platelet Count 260 X 10*3/uL (140-440); RBC 4.08 X 10*6/uL (4.10-5.20); RDW 13.1 % (11.5-14.5); WBC 7.15 X 10*3/uL (4.50-10.00)
[2021-12-25 22:47] LABS: Erythrocyte Sedimentation Rate 1 mm/Hr (0-30)
[2021-12-25 23:17] LABS: ALT 10 U/L (8-44); AST 16 U/L (13-35); African American GFR (CKD) 111.5 (60.0-200.0); Albumin 4.4 g/dL (3.8-4.9); Alkaline Phosphatase 91 U/L (41-126); BUN/Creat Ratio 26.83 Ratio (12.00-20.00); Calcium 9.3 mg/dL (8.7-10.3); Carbon Dioxide 24.2 mmol/L (20.0-27.5); Chloride 106 mmol/L (96-109); Globulin 2.2 g/dL (1.6-3.3); Glucose 86 mg/dL (70-110); Iron 39 ug/dL (50-170); Non-African American GFR(CKD) 96.2 (60.0-200.0); Potassium 3.9 mmol/L (3.5-5.5); Sodium 142 mmol/L (135-145); Total Bilirubin <0.15 mg/dL (0.30-1.20); Total Protein 6.6 g/dL (6.2-8.2)
[2021-12-26 01:36] LABS: Anti-DNA, DS unit <1.0 IU/mL; DNA Double-Stranded NEGATIVE (NEGATIVE)
== END | disposition home or self-care (01) ==
LOC: LABWHC1 14:29
PROVIDERS: ATTEND Family Medicine
DX: R53.83 Other fatigue (principal)
CPT/HCPCS: 36415; 80053; 82306; 82607; 83540; 84439; 84443; 85027; 85652; 86038; 86225

== ENCOUNTER 2022-01-22 05:58 | Day surgery (SDC) | payer MEDICAID ==
[2022-01-22 06:31] VITALS: RESP 14; TEMP 98
[2022-01-22] MEDS ORDERED: methylPREDNISolone ACETATE 80 MG/ML 1 ML VIAL ONE (06:58)
[2022-01-22] MEDS ORDERED: IOPAMIDOL M200 10 ML VIAL ONE (06:58)
--- NOTE | 2022-01-22 07:09 | P.PCN ---
Date of Procedure: 01/22/22 Procedure(s) Performed: PREOPERATIVE DIAGNOSIS: 1- Lumbar Degenerative Disc Diseases 2-Lumbar spondylosis with Facet arthropathy without myelopathy. 3-lumbar spinal stenosis POSTOPERATIVE DIAGNOSIS: Same as preop diagnosis. PROCEDURE 1. Lumbar epidural steroid injection under fluoroscopic guidance at the L4-5 level. (Fluoroscopy imaging was available in radiology department) 2. Lumbar epidurogram. ANESTHESIA: Local anesthesia with lidocaine 1% 3 mL only EBL: Minimal PROCEDURE INDICATION: The patient with low back pain and radiculitis symptoms unresponsive to conservative treatment. Fluoroscopy was used to optimize visualization of the needle placement and to maximize safety. PROCEDURE DESCRIPTION / TECHNIQUE: The patient was seen and identified in the preoperative area. Risks, benefits, complications including but not limited to infections ,bleeding ,allergic reaction to the medications ,nerve damage and not complete pain releife , and alternatives were discussed with the patient. The patient agreed to proceed with the procedure and signed the consent, and vital signs were stable. Patient was taken to the OR and time out was completed. The patient was placed in the prone position on procedure table and a pillow was placed under the abdomen to reduce lumbar lordosis. The lumbosacral area was prepped and draped in the usual sterile fashion.ere closely monitored during the procedure. Vital signs was monitered during the entire procedure. Using anterior-posterior fluoroscopy, the L4-5 interlaminar space was identified and the skin over this site was marked and then infiltrated with 1% lidocaine subcutaneously. Subsequently, a 20-gauge Tuohy epidural needle was inserted and advanced toward the epidural space using the ``Loss of resistance technique and guided by AP and lateral fluoroscopy. The correct needle position in the epidural space was verified with the injection of 2 mL of the water soluble contrast dye Isovue 200 contrast and observing an excellent epidurogram with the epidural spread of the dye, after negative aspiration for blood and CSF and in the absence of paresthesias. Again after negative aspiration, a 6 ml mixture containing 80 mg of Depo-medrol ( Preservetive Free ), and 2 ml of preservative free Normal Saline, and 2 ml of preservative free lidocaine 1% solution was injected and a washout of epidurogram was seen. Needle was withdrawn intact, skin was cleansed, and bandages were applied. COMPLICATIONS: None DISPOSITION / PLANS: The patient was placed in a supine position and transferred to the recovery area in a stable condition for observation. There was no evidence of lower extremity motor or sensory deficit after the procedure. Patient was discharged from the recovery room after meeting discharge criteria. Home discharge instructions were given to the patient by the staff. The patient was reexamined prior to discharge. The patient will schedule a follow up in the clinic in 2-4 weeks.
[2022-01-22 07:30] VITALS: BP 134/90; PULSE 77
--- NOTE | 2022-01-22 10:01 | FL ---
EXAMINATION TYPE: FL guided pain mgmt statistic DATE OF EXAM: 01/22/2022 FLUOROSCOPY Fluoroscopy time of non- seconds was used during lumbar epidural injection. 1 image/s document/s the procedure.
== END 2022-01-22 07:31 | disposition home or self-care (01) ==
LOC: ORPAIN 05:58
PROVIDERS: ATTEND Specialist
DX: M51.16 Intervertebral disc disorders with radiculopathy, lumbar region (principal); M47.26 Other spondylosis with radiculopathy, lumbar region; M48.061 Spinal stenosis, lumbar region without neurogenic claudication; Z88.2 Allergy status to sulfonamides
CPT/HCPCS: 62323; J1040; Q9966

== ENCOUNTER → 2022-03-11 | Outpatient (CLI) | payer MEDICAID ==
[2022-03-11 13:25] VITALS: BP 137/93; PULSE 90; RESP 18
--- NOTE | 2022-03-11 14:16 | P.PAINPG ---
PQRS Measure Charge Sheet Comment: A 61 yr old female with a history of severe and chronic LBP secondary to lumbar DDD and spondylosis with facet arthropathy without myelopathy presents today for evaluation s/p GRAZYNA L4-L5 #1. Pt states she experienced 50 % pain relief x 1 days s/p procedure. Pain level is provoked at 6 /10 in intensity, constant, localized in the lumbar spine, cramping in character w shooting towards the LLE. Pain is provoked by standing/ walking for periods of 20 min or more. Pain is alleviated with meds ([place], Diclofenac from Dr Meade), home exercise regimen, laying supine, repositioning and rest. Interventional pain procedures completed include GRAZYNA L4-L5 x1 Patient is currently on [place], Diclofenac tabs Patient denies any side effects of the medication(s), denies excessive drowsiness or sleepiness, denies suicidal ideation and reports that the current pain medication is helping to control the pain and improve activities of daily living. Patient denies any motor or sensory deficits. Patient denies any fever or night sweats, denies any change in the bowel movements or urination. Physical Examination: -Constitutional: Cooperative. Not in acute distress . - Neurologic: Cranial nerve II to XII intact. No focal neurological deficits. - Psychatric: Alert & oriented x 3. Matching mood & appropriate affect. Judgment and insight intact. - Musculoskeletal: Cervical spine: Muscle bulk/ tone/ strength in the bilateral upper extremities normal Vertebral body tenderness to palpation over Spurling test positive Distraction test positive Facet loading test positive Thoracic spine Muscle bulk / tone/ strength in the bilateral paraspinal muscles normal Vertebral body tender to palpation over Facet loading test positive Lumbar spine: Motor bulk/ tone/ strength lower extremities , thigh and legs : 5/5 Deep tendon reflexes : Normal Knee Jerk. Normal Ankle Jerk . Vertebral body tenderness to palpation over Lumbar Facet Loading Test positive TTP over BL L4-L5, L5-S1 facets, L>R Straight Leg Raise: positive at 30 degrees right side/ left side Gaenslen's Test positive Sacral spine : Severe tenderness over the Sacroiliac joint: right side / left side Range of motion: Flexion of the lumbar spine <60 degrees Range of motion: Extension of the lumbar spine <20 degrees Gaenslen's Test positive Shwetha test: positive right side / left side Thigh Thrust Test Sacral Thrust Test Assessment and plan: Chronic LBP secondary to lumbar DDD, spondylosis with facet arthropathy without myelopathy Recommendation of BL L4-L5, L5-S1 #1 facet blocks of the medial branches. May need a series of injections, up until RFA, for optimal pain relief. Risks, benefits of procedure discussed and pt verbalized understanding. Denies ant icoagulant use or medical history of diabetes. All patient questions answered I have spent less than 30 minutes on patient care today. Dr Parra was available by phone for the evaluation of this patient. The time was used to review the medical records including relevant urine studies and Prescription history (MAPs), review of the available imaging, evaluation and examination of the patient, coordination of care with the medical staff and if applicable referring physicians, as well as creation of the medical record PQRS Narrative: Smoking Status Former smoker Hx Alcohol Use (MH) Yes Home Medications: Ambulatory Orders ALPRAZolam [Xanax] 0.5 mg PO TID PRN 03/10/20 Diclofenac Sodium [Voltaren] 75 mg PO HS 03/10/20 HYDROcodone/APAP 10-325MG [[place] 10-325] 1 tab PO TID PRN 03/10/20 Ibuprofen [Motrin Ib] 400 - 800 mg PO Q8H PRN 03/10/20 Levothyroxine Sodium [Synthroid] 75 mcg PO DAILY@0630 03/10/20 Controlled Substance Measures - Controlled Substance Measures Is patient prescribed a controlled substance at discharge?: No
== END ==
LOC: PNWHC3 12:56
PROVIDERS: ATTEND Specialist
DX: M47.816 Spondylosis without myelopathy or radiculopathy, lumbar region (principal); M51.36 Other intervertebral disc degeneration, lumbar region; Z87.891 Personal history of nicotine dependence; Z88.2 Allergy status to sulfonamides; Z91.030 Bee allergy status; Z91.018 Allergy to other foods
CPT/HCPCS: 99211

== ENCOUNTER → 2022-04-29 | Outpatient (CLI) | payer MEDICAID ==
[2022-04-29 11:31] VITALS: BP 123/75; PULSE 84; RESP 20; TEMP 98.7
--- NOTE | 2022-04-29 15:12 | P.PAINPG ---
PQRS Measure Charge Sheet Comment: A 61 yr old female with a history of severe and chronic LBP secondary to lumbar DDD and spondylosis with facet arthropathy without myelopathy presents today for evaluation s/p BL facet block of the medial branches L4-L5, L5-S1 #1. Pt states she experienced 90% pain relief x 3 hrs s/p procedure. Pain level is provoked at 7/10 in intensity, constant, localized in the lower lumbar spine, achy in character w shooting towards the anterior thigh and groin. Pain is provoked by standing/ walking for periods of 15 min or more. Pain is alleviated with heat, topicals, home exercise and stretching regimen, repositioning and rest. Pt is contraindicated for PT or chiropractic treatments due to Fibromyalgia and flare ups that occur. Interventional pain procedures completed include BL MBB L3-L5 x1 Patient is currently on topicals Patient denies any side effects of the medication(s), denies excessive drowsines s or sleepiness, denies suicidal ideation and reports that the current pain medication is helping to control the pain and improve activities of daily living. Patient denies any motor or sensory deficits. Patient denies any fever or night sweats, denies any change in the bowel movements or urination. Physical Examination: -Constitutional: Cooperative. Not in acute distress . - Neurologic: Cranial nerve II to XII intact. No focal neurological deficits. - Psychatric: Alert & oriented x 3. Matching mood & appropriate affect. Judgment and insight intact. - Musculoskeletal: Cervical spine: Muscle bulk/ tone/ strength in the bilateral upper extremities normal Vertebral body tenderness to palpation over Spurling test positive Distraction test positive Facet loading test positive TTP Thoracic spine Muscle bulk / tone/ strength in the bilateral paraspinal muscles normal Vertebral body tender to palpation over Facet loading test positive TTP Lumbar spine: Motor bulk/ tone/ strength lower extremities , thigh and legs : 5/5 Deep tendon reflexes : Normal Knee Jerk. Normal Ankle Jerk . Vertebral body tenderness to palpation over Lumbar Facet Loading Test positive TTP over BL L4-L5, L5-S1 facets Straight Leg Raise: positive at 30 degrees right side/ left side Gaenslen's Test positive Sacral spine : Severe tenderness over the Sacroiliac joint: right side / left side Range of motion: Flexion of the lumbar spine <60 degrees Range of motion: Extension of the lumbar spine <20 degrees Gaenslen's Test positive right side / left side Shwetha test: positive right side / left side Thigh Thrust Test positive right side / left side Sacral Thrust Test positive right side / left side Assessment and plan: Chronic LBP secondary to lumbar DDD, spondylosis with facet arthropathy without myelopathy Recommendation of BL facet block of the medial branches L4-L5, L5-S1 #2. Pt may need a series of injections, up until RFA, for optimal pain relief. Risks, benefits of procedure discussed and pt verbalized understanding. Admits to anticoagulant use or medical history of diabetes. Protocol for discontinuation/ continuation of medications kalee procedure discussed. All questions answered. I have spent less than 30 minutes on patient care today. Dr Parra was available by phone for the evaluation of this patient. The time was used to review the medical records including relevant urine studies and Prescription history (MAPs), review of the available imaging, evaluation and examination of the patient, coordination of care with the medical staff and if applicable referring physicians, as well as creation of the medical record PQRS Narrative: Smoking Status Former smoker Hx Alcohol Use (MH) Yes Home Medications: Ambulatory Orders ALPRAZolam [Xanax] 0.5 mg PO TID PRN 03/10/20 Diclofenac Sodium [Voltaren] 75 mg PO HS 03/10/20 HYDROcodone/APAP 10-325MG [[place] 10-325] 1 tab PO TID PRN 03/10/20 Ibuprofen [Motrin Ib] 400 - 800 mg PO Q8H PRN 03/10/20 Levothyroxine Sodium [Synthroid] 75 mcg PO DAILY@0630 03/10/20 Controlled Substance Measures - Controlled Substance Measures Is patient prescribed a controlled substance at discharge?: No
== END ==
LOC: PNWHC3 11:08
PROVIDERS: ATTEND Specialist
DX: M51.36 Other intervertebral disc degeneration, lumbar region (principal); M47.816 Spondylosis without myelopathy or radiculopathy, lumbar region; G89.29 Other chronic pain; Z87.891 Personal history of nicotine dependence; Z91.02 Food additives allergy status; Z91.030 Bee allergy status; Z88.2 Allergy status to sulfonamides
CPT/HCPCS: 99211

== ENCOUNTER → 2022-05-22 | Day surgery (SDC) | payer MEDICAID ==
[2022-05-20 14:14] VITALS: BMI 25.6
[~2022-05-22] MED LIST changes: -LACTATED RINGERS 1,000 ML IV ONE; +LACTATED RINGERS 1,000 ML IV SCH; +LIDOCAINE 1% (10MG/ML) FOR IV START INTRADERMA PRN; +ROPIVACAINE 5 MG/ML 20 ML AMPULE ONE; +methylPREDNISolone ACETATE 40 MG/ML 1 ML VIAL ONE
[2022-05-22 07:12] VITALS: RESP 16; TEMP 97.1
--- NOTE | 2022-05-22 08:04 | P.PCN ---
Date of Procedure: 05/22/22 Procedure(s) Performed: PREOPERATIVE DIAGNOSIS : 1- Lumbar spondylosis with Facet Arthropathy without myelopathy . 2- Lumber degenerative disc disease POSTOPERATIVE DIAGNOSIS: 1- Lumbar spondylosis with Facet Arthropathy without myelopathy . 2- Lumber degenerative disc disease PROCEDURE: Diagnostic bilateral L3 , L4 , and L5 medial branch block under fluoroscopy guidance(fluoroscopy images available in the radiology Department ) ( To target the facet joint between bilateral L4-5 , and L5-S1 )#2nd ANESTHESIA: Local anesthesia with ropivacaine 0.5% 6 ML only EBL: Minimal COMPLICATION: None PROCEDURE INDICATION: Chronic low back pain secondary to Facet arthropathy unresponsive to conservative treatment. PROCEDURE DESCRIPTION: the patient was seen and identified in the preop holding area , risks and benefits and possible complications of the procedure and alternative were discussed with the patient, and the patient agreed to proceed with the procedure and signed the consent and vital signs monitored during the procedure and fluoroscopy was used to maximize the benefit and accuracy of the needle placement,, patient was taken to the procedure room and placed in prone position vital signs monitored in the back prepped with chlorhexidine X3 then under strict sterile technique using a right oblique fluoroscopy ,the junction of the transverse process and the superior articulating process of the right L3 , L4 , and L5 vertebra which corresponding to the fluoroscopy image of the eye of the Jonathon dog on the block side for the medial branches and subsequently , after local infiltration of skin and subcu tissuies with Ropivacaine 0.5 % , one mL at each level ,then 22-gauge Quincke-type needles , 3 needle was used , each one of them placed at the junct ion of the base of the transverse process and the superior articular process at the appropriate level, and the needle was advanced until the periosteum contacted, needle placement confirmed with AP oblique and lateral view and after appropriate needle placement confirmed, and after negative aspiration for heme and CSF and there was no paresthesia 1-1/2 mL of Ropivacaine 0.5% mixed with 20 mg Depo-Medrol , then half mL injected at each level after negative aspiration the needle subsequently removed and the same procedure repeated for the left side at left side at L3 , L4 and L5 levels. At the end of the procedure and the needles removed and a bandage applied after the skin was cleaned the cleaning solution patient taken to recovery room in stable condition and monitors in the recovery room for 20-30 minutes and discharged home in stable condition after discharge criteria met and patient will follow up with the pain clinic in 2-4 weeks
--- NOTE | 2022-05-22 08:22 | FL ---
Intraoperative/procedural fluoroscopic services were provided for bilateral lumbar facet block. Total fluoroscopy time is 10 seconds with a total of 4 submitted images to PACS. Total DAP 0.76123 mGym2. Please see the operative note for further details.
[2022-05-22 08:35] VITALS: BP 123/72; PULSE 78
== END ==
LOC: ORPAIN 06:50
PROVIDERS: ATTEND Specialist
DX: M51.36 Other intervertebral disc degeneration, lumbar region (principal); M47.816 Spondylosis without myelopathy or radiculopathy, lumbar region; G89.29 Other chronic pain; Z88.2 Allergy status to sulfonamides
CPT/HCPCS: 64493; 64494; J1030; J2795

== ENCOUNTER → 2022-07-29 | Outpatient (CLI) | payer MEDICAID ==
[2022-07-29 13:46] VITALS: BP 134/90; PULSE 99; RESP 18; TEMP 98
--- NOTE | 2022-07-29 15:50 | P.PAINPG ---
PQRS Measure Charge Sheet Comment: A 61 yr old female with a history of severe and chronic LBP secondary to lumbar DDD and spondylosis with facet arthropathy without myelopathy presents today for evaluation s/p BL MBB L4-L5, L5-S1 #2. Pt states she experienced 100 % pain relief x 48 hrs s/p procedure. Pain level is provoked at 8 /10 in inten sity, constant, localized in the lumbar spine, achy in character w shooting towards the LLE. Pain is provoked by over activity. Pain is alleviated with heat, medications, topical, repositioning and rest. Interventional pain procedures completed include BL MBB L3-L5 x2 Patient is currently on [place], Ibu Patient denies any side effects of the medication(s), denies excessive drowsiness or sleepiness, denies suicidal ideation and reports that the current pain medication is helping to control the pain and improve activities of daily living. Patient denies any motor or sensory deficits. Patient denies any fever or night sweats, denies any change in the bowel movements or urination. Physical Examination: -Constitutional: Cooperative. Not in acute distress . - Neurologic: Cranial nerve II to XII intact. No focal neurological deficits. - Psychatric: Alert & oriented x 3. Matching mood & appropriate affect. Judgment and insight intact. - Musculoskeletal: Cervical spine: Muscle bulk/ tone/ strength in the bilateral upper extremities normal Vertebral body tenderness to palpation over Spurling test positive Distraction test positive Facet loading test positive TTP Thoracic spine Muscle bulk / tone/ strength in the bilateral paraspinal muscles normal Vertebral body tender to palpation over Facet loading test positive TTP Lumbar spine: Motor bulk/ tone/ strength lower extremities , thigh and legs : 5/5 Deep tendon reflexes : Normal Knee Jerk. Normal Ankle Jerk . Vertebral body tenderness to palpation over Cook Test positive Lumbar Facet Loading Test positive BL L4-L5, L5-S1 Straight Leg Raise: positive at 30 degrees right side/ left side Gaenslen's Test positive Sacral spine : Severe tenderness over the Sacroiliac joint: right side / left side Range of motion: Flexion of the lumbar spine <60 degrees Range of motion: Extension of the lumbar spine <20 degrees Gaenslen's Test positive right side / left side Shwetha test: positive right side / left side Thigh Thrust Test positive right side / left side Sacral Thrust Test positive right side / left side Assessment and plan: Chronic LBP secondary to lumbar DDD, spondylosis with facet arthropathy without myelopathy Recommendation of BL RFA L4-L5, L5-S1. Pt exhibited sufficient and substantial pain relief w prior MBB procedures. Risks, benefits of procedure discussed and pt verbalized understanding. Admits to anticoagulant use or medical history of diabetes. Protocol for discontinuation/ continuation of medications kalee procedure discussed. Minimal anesthesia provided, if clinically indicated, consisting of Versed and Fentanyl. All questions answered. I have spent less than 30 minutes on patient care today. Dr Parra was available by phone for the evaluation of this patient. The time was used to review the medical records including relevant urine studies and Prescription history (MAPs), review of the available imaging, evaluation and examination of the patient, coordination of care with the medical staff and if applicable referring physicians, as well as creation of the medical record PQRS Narrative: Smoking Status Former smoker Hx Alcohol Use (MH) Yes Home Medications: Ambulatory Orders ALPRAZolam [Xanax] 0.5 mg PO TID PRN 03/10/20 Diclofenac Sodium [Voltaren] 75 mg PO HS 03/10/20 HYDROcodone/APAP 10-325MG [[place] 10-325] 1 tab PO TID PRN 03/10/20 Ibuprofen [Motrin Ib] 400 - 800 mg PO Q8H PRN 03/10/20 Levothyroxine Sodium [Synthroid] 75 mcg PO DAILY@0630 03/10/20 methylPREDNISolone Dose Pack [Medrol Dose Pack] 4 mg PO DIRECTED 6 Days #21 tab 07/29/22 Controlled Substance Measures - Controlled Substance Measures Is patient prescribed a controlled substance at discharge?: No
== END ==
LOC: PNWHC3 12:45
PROVIDERS: ATTEND Specialist
DX: M51.36 Other intervertebral disc degeneration, lumbar region (principal); M47.816 Spondylosis without myelopathy or radiculopathy, lumbar region; G89.29 Other chronic pain; Z87.891 Personal history of nicotine dependence; Z88.2 Allergy status to sulfonamides; Z91.018 Allergy to other foods; Z91.030 Bee allergy status
CPT/HCPCS: 99211

== ENCOUNTER 2022-08-28 07:45 | Day surgery (SDC) | payer MEDICAID ==
[2022-08-28 08:10] VITALS: TEMP 97.4
[2022-08-28] MEDS ORDERED: LIDOCAINE 1% (10MG/ML) FOR IV START INTRADERMA PRN (08:10)
[2022-08-28] MEDS ORDERED: LACTATED RINGERS 1,000 ML IV SCH (08:10)
[2022-08-28] MEDS ORDERED: ROPIVACAINE 5 MG/ML 20 ML AMPULE ONE (08:25)
[2022-08-28] MEDS ORDERED: MIDAZOLAM 2 MG/2 ML VIAL ONE (08:25)
[2022-08-28] MEDS ORDERED: methylPREDNISolone ACETATE 40 MG/ML 1 ML VIAL ONE (08:25)
[2022-08-28] MEDS ORDERED: fentaNYL (PF) 50 MCG/ML 2 ML AMP ONE (08:25)
--- NOTE | 2022-08-28 08:54 | P.PCN ---
Date of Procedure: 08/28/22 Procedure(s) Performed: PREOPERATIVE DIAGNOSIS: 1-Lumbar Spondylosis with Facet Arthropathy without myelopathy. 2- Lumber degenerative disc disease. POSTOPERATIVE DIAGNOSIS: 1- Lumbar Spondylosis with Facet Arthropathy without myelopathy. 2- Lumber degenerative disc disease. PROCEDURES : Bilateral Radiofrequency thermocoagulation, L3 , L4 , and L5 medial branch, with fluoroscopic guidance (fluoroscopy images available in the radiology department) ( to denervate the facet joint at Bilateral L4-5 ,and L5-S1 levels ). ANESTHESIA: Monitored anesthesia care as anesthesia Department EBL: Minimal PROCEDURE INDICATION: The patient with low back pain secondary to lumbar facet arthropathy who had more than 80% relief of her pain with previous diagnostic lumbar medial branch block PROCEDURE DESCRIPTION / TECHNIQUE: The patient was seen and identified in the preoperative area. Risks, benefits, complications, including but not limited to risk of infection ,bleeding , allergic reactions to the medications and no complete pain releife , and alternatives were discussed with the patient, the patient agreed to proceed with the procedure and signed the consent. IV was started. Vital signs remained stable throughout the procedure. Patient was taken to the OR and time out was completed. The patient was placed in the prone position on the procedure table. The lumber area was prepped and draped in the usual sterile fashion. . Vital signs were closely monitored during the procedure .IV sedation was used during the procedure to decrease patients anxiety. Using AP and then oblique fluoroscopy, the ``eye of the Jonathon dog corresponding to the connection between the superior and transverse articular processes of right L3, L4, and L5 were identified, marked, and localized with 1% lidocaine. Subsequently, a [id number] radiofrequency cannula with a 10- mm active tip was advanced guided by fluoroscopy to each of the``eyes of the Jonathon dog at right L3, L4, and L5. Each site then underwent sensory testing at 50 Hz and 0 to 1 volt and motor testing at 2.5 Hz and 0 to 3 volt with local stimulation, but no radicular symptoms down the legs. Thereafter each sites underwent radiofrequency thermocoagulation at 80 degrees celsius for 90 seconds after injecting 0.5 ml of PF Ropivacaine 1ml, then after the thermocoagulation done , 1 ml of the block solution containing Depo-Medrol 20 mg and 3 ml of Ropivacaine 0.5% was injected at the right L3 , L4 , and L5 , levels after negative aspiration of CSF and blood and with no paresthesias. Cannulas were retracted while injecting lidocaine 1% until the needle is out. The same procedure was repeated at the level of Left L3, L4, and L5 levels. At the end of the procedure, the skin was cleansed and bandages were applied. COMPLICATIONS: No acute complications. DISPOSITION / PLANS: The patient was placed in a supine position and transferred to the recovery area in a stable condition for observation and was discharged from the recovery room after meeting discharge criteria. Home d ischarge instructions given to the patient by the staff. The patient was reexamined prior to discharge. The patient will schedule a follow up in the clinic in 2-4 weeks.
[2022-08-28 09:11] VITALS: RESP 16
[2022-08-28] MEDS ORDERED: IV FLUID CONTINUATION 1,000 ML IV ONE (09:12)
[2022-08-28 09:14] VITALS: BP 129/89; PULSE 74
--- NOTE | 2022-08-28 11:00 | FL ---
Fluoroscopy INDICATION: Pain FINDINGS: Fluoroscopy time: 13 seconds. Total dose area product (DAP) in uGy*m?, mGy*cm? (or similar): 0.64152 Images obtained: 8. IMPRESSIONS: 1. Documentation of fluoroscopy.
== END 2022-08-28 09:28 | disposition home or self-care (01) ==
LOC: ORPAIN 07:45
PROVIDERS: ATTEND Specialist
DX: M51.36 Other intervertebral disc degeneration, lumbar region (principal); M47.817 Spondylosis without myelopathy or radiculopathy, lumbosacral region; E78.5 Hyperlipidemia, unspecified; Z88.2 Allergy status to sulfonamides; Z87.891 Personal history of nicotine dependence; Z79.899 Other long term (current) drug therapy
CPT/HCPCS: 64635; 64636 ×2; J2250; J1030; J3010; J2795

== ENCOUNTER 2022-10-11 16:32 | Emergency (ER) | payer MEDICAID ==
[2022-10-11 16:48] VITALS: RESP 18
[2022-10-11 17:11] LABS: Basophils % (A) 1 %; Eosinophils # (A) 0.3 k/uL (0-0.7); Eosinophils % (A) 4 %; HCT 37.3 % (34.0-46.0); HGB 12.9 gm/dL (11.4-16.0); Lymphocytes # (A) 1.6 k/uL (1.0-4.8); Lymphocytes % (A) 24 %; MCH 32.7 pg (25.0-35.0); MCHC 34.5 g/dL (31.0-37.0); MCV 94.8 fL (80.0-100.0); Mean Platelet Volume 7.5; Monocytes # (A) 0.3 k/uL (0-1.0); Monocytes % (A) 5 %; Neutrophils # (A) 4.3 k/uL (1.3-7.7); Neutrophils % (A) 65 %; Platelet Count 232 k/uL (150-450); RBC 3.94 m/uL (3.80-5.40); RDW 12.8 % (11.5-15.5); WBC 6.6 k/uL (3.8-10.6)
--- NOTE | 2022-10-11 17:11 | ED ---
General Adult HPI - General Chief complaint: Neuro Symptoms/Deficit Stated complaint: feeling unwell Time Seen by Provider: 10/11/22 16:40 Source: EMS Mode of arrival: EMS Limitations: no limitations - History of Present Illness Initial comments: 61-year-old female presents to the emergency department accompanied by coworkers. The patient is a respiratory therapist at our facility. The patient was found on the fifth floor attempting to give breathing treatments to patient's that did not have breathing treatments ordered. She seemed very confused with slurred speech. The last her coworkers saw her normal was at 7 AM when she arrived to work. They thought that she had been taking an extra amount of time to complete her daily work than it normally does. She does have history of previous TIA back on August 15. There is no lateralizing symptoms. Patient is alert and oriented. She does not remember getting lost on the floor but does remember her previous episode. She is reluctant to be evaluated. Denies any head injuries. No visual changes. Denies any numbness, tingling or weakness in her extremities. No chest pain or shortness of breath. No other alleviating, precipitating or modifying factors - Related Data Home Medications Medication Instructions Recorded Confirmed ALPRAZolam [Xanax] 0.5 mg PO TID PRN 03/10/20 08/28/22 Diclofenac Sodium [Voltaren] 75 mg PO HS 03/10/20 08/28/22 HYDROcodone/APAP 10-325MG [Cotton 1 tab PO TID PRN 03/10/20 08/28/22 10-325] Levothyroxine Sodium [Synthroid] 75 mcg PO DAILY 03/10/20 08/28/22 Mirtazapine [Remeron] 15 mg PO HS 08/15/22 08/28/22 Atorvastatin Calcium [Lipitor] 40 mg PO HS 08/28/22 08/28/22 Allergies Allergy/AdvReac Type Severity Reaction Status Date / Time gluten Allergy swelling Verified 10/11/22 16:47 of thyroid venom-honey bee Allergy Anaphylaxis Verified 10/11/22 16:47 [bee venom (honey bee)] Sulfa (Sulfonamide AdvReac Diarrhea Verified 10/11/22 16:47 Antibiotics) Review of Systems ROS Statement: Those systems with pertinent positive or pertinent negative responses have been documented in the HPI. ROS Other: All systems not noted in ROS Statement are negative. Past Medical History Past Medical History: Fibromyalgia, Hyperlipidemia, Osteoarthritis (OA), Thyroid Disorder Additional Past Medical History / Comment(s): Pt states that recently she started having jerky, uncontrollable movements along with muscle spasms and cl enching of her teeth. She has also started having difficulty swallowing solids and liquids. Other hx: cervical and back disc disease/herniations, R sided sciatica, migraines, numbness/tingling bilateral hands/fingers and feet, lately elevated blood pressure, hypothyroid. History of Any Multi-Drug Resistant Organisms: None Reported Past Surgical History: Orthopedic Surgery, Tonsillectomy, Tubal Ligation Additional Past Surgical History / Comment(s): Numerous [facility] procedures, right carpal tunnel release, right shoulder arthroscopic sx for impingement Past Anesthesia/Blood Transfusion Reactions: No Reported Reaction, Postoperative Nausea & Vomiting (PONV) Past Psychological History: Anxiety Smoking Status: Never smoker Past Alcohol Use History: Occasional Past Drug Use History: None Reported - Past Family History Mother Family Medical History: No Reported History Additional Family Medical History / Comment(s): Mother is healthy. Father Family Medical History: Dementia Additional Family Medical History / Comment(s): Father from alzheimers. General Exam Limitations: no limitations General appearance: alert, in no apparent distress, other (Patient has some slurred speech) Head exam: Present: atraumatic, normocephalic, normal inspection Eye exam: Present: normal appearance, PERRL, EOMI. Absent: scleral icterus, conjunctival injection, periorbital swelling ENT exam: Present: normal exam, mucous membranes moist Neck exam: Present: normal inspection. Absent: tenderness, meningismus, lymphadenopathy Respiratory exam: Present: normal lung sounds bilaterally. Absent: respiratory distress, wheezes, rales, rhonchi, stridor Cardiovascular Exam: Present: regular rate, normal rhythm, normal heart sounds. Absent: systolic murmur, diastolic murmur, rubs, gallop, clicks GI/Abdominal exam: Present: soft, normal bowel sounds. Absent: distended, tenderness, guarding, rebound, rigid Extremities exam: Present: normal inspection, full ROM, normal capillary refill. Absent: tenderness, pedal edema, joint swelling, calf tenderness Back exam: Present: normal inspection Neurological exam: Present: alert, oriented X3, CN II-XII intact Psychiatric exam: Present: normal affect, normal mood Skin exam: Present: warm, dry, intact, normal color. Absent: rash Course Vital Signs 10/11/22 10/11/22 16:34 18:55 Temperature 98.2 F 98.4 F Pulse Rate 92 95 Respiratory 18 18 Rate Blood Pressure 154/103 146/80 O2 Sat by Pulse 96 97 Oximetry Medical Decision Making - Medical Decision Making Was pt. sent in by a medical professional or institution (, PA, DYNAMO TENDER, urgent care, hospital, or [place] [facility] [place]...) When possible be specific @ -Patient was brought to the ED by the field nurse case manager Did you speak to anyone other than the patient for history (EMS, parent, family, police, friend...)? What history was obtained from this source @ -I spoke with the patient's coworkers that have seen her throughout the day today Did you review nursing and triage notes (agree or disagree)? Why? @ -I reviewed and agree with nursing and triage notes Were old charts reviewed (outside hosp., previous admission, EMS record, old EKG, old radiological studies, urgent care reports/EKG's, [place] [facility] facility records)? Report findings @ -I reviewed the patient's chart from August 15 for she had similar episode Differential Diagnosis (chest pain, altered mental status, abdominal pain women, abdominal pain men, vaginal bleeding, weakness, fever, dyspnea, syncope, headache, dizziness, GI bleed, back pain, seizure, CVA, palpatations, mental health, musculoskeletal)? @ -Differential Altered Mental Status: Hypoglycemia, DKA, hypercapnia, ETOH, overdose, CO poisoning, trauma, myxedema coma, HTN encephalopathy, infection, encephalitis, psychosis, intercranial hemorrhage, hepatic encephalopathy, meningitis, CVA, this is not meant to be an all-inclusive list EKG interpreted by me (3pts min.). @ -Yes demonstrates sinus rhythm with a rate of 95. IL interval 125. QRS 85. Qtc 411. No acute ST segment elevation or depression X-rays interpreted by me (1pt min.). @ -Yes and demonstrates no acute intrathoracic process CT interpreted by me (1pt min.). @ -Yes and demonstrates no acute intracranial process U/S interpreted by me (1pt. min.). @ -None done What testing was considered but not performed or refused? (CT, X-rays, U/S, labs)? Why? @ -I recommended admission for EEG and echo. Patient is refusing admission What meds were considered but not given or refused? Why? @ -None Did you discuss the management of the patient with other professionals (professionals i.e. , PA, DYNAMO TENDER, lab, RT, psych nurse, social sciences department chair, vessel specialist, teacher, senior grants officer, field nurse case manager)? Give summary @ -I spoke with Dr. Meade in regards to the patient. He agreed that the patient requires admission. I then called and spoke with Dr. Rojas who states that he wanted EEG and an echo of the patient's heart. This is discussed with the patient that there are 3 providers that would like the patient needed to the hospital for further workup. Patient is adamantly refusing admission Was smoking cessation discussed for >3mins.? @ -No Was critical care preformed (if so, how long)? @ -No Were there social determinants of health that impacted care today? How? (Homelessness, low income, unemployed, alcoholism, drug addiction, transportati on, low edu. Level, literacy, decrease access to med. care, group home, rehab)? @ -No Was there de-escalation of care discussed even if they declined (Discuss DNR or withdrawal of care, Hospice)? DNR status @ -No What co-morbidities impacted this encounter? (DM, HTN, Smoking, COPD, CAD, Cancer, CVA, ARF, Chemo, Hep., AIDS, mental health diagnosis, sleep apnea, morbid obesity)? @ -Previous TIA Was patient admitted / discharged? Hospital course, mention meds given and route, prescriptions, significant lab abnormalities, going to OR and other pertinent info. @ -Upon arrival patient was placed into room 1. NIH is assessed and is 0. Her last known well was 7 AM. Patient does have some slurred speech and appears to be altered however she is alert and oriented 3. IV is established and laboratory studies were conducted. She does have a CT of her head performed. Results are discussed the patient as well as Dr. Ram and Dr. Rojas. Strongly recommended admission due to her alteration in her mental status area patient is adamant that she wants to go home at this time. She is alert and oriented 3. I did call and speak with patient's son. He does agree that the patient should remain hospitalized however he knows that she will not therefore he presents to the emergency department to drive the patient home. The patient is informed that she may not return to work as there is a liability until she is cleared by her primary care physician and neurologist. She is also aware that she shouldn't drive. We do obtain the patient's urinalysis which demonstrates that she is positive for benzos and opiates for which she is prescribed. Patient is also positive for oxycodone and THC. Patient is made aware that she is leaving AGAINST MEDICAL ADVICE for which she understood. Strongly recommended that she return for further workup as there is high risk to injury to herself as she does not appear to be at her normal baseline. Son and patient understood and the patient signs her AMA paperwork Undiagnosed new problem with uncertain prognosis? @ -Yes Drug Therapy requiring intensive monitoring for toxicity (Heparin, Nitro, Insulin, Cardizem)? @ -No Were any procedures done? @ -No Diagnosis/symptom? @ -Acute encephalopathy, possible TIA, THC use, opiate use Acute, or Chronic, or Acute on Chronic? @ -Acute Uncomplicated (without systemic symptoms) or Complicated (systemic symptoms)? @ -Complicated Side effects of treatment? @ -No Exacerbation, Progression, or Severe Exacerbation? @ -No Poses a threat to life or bodily function? How? (Chest pain, [place], [place], pneumonia, PE, COPD, DKA, ARF, appy, cholecystitis, CVA, Diverticulitis, Homicidal, Suicidal, threat to staff... and all critical care pts) @ -Yes, high concern that the patient could make a poor decision due to her altered mental status. She is alert and oriented 3. Son does present and is aware of the risks of taking his mother home. They are both agreeable to these risks. Strongly recommended that they follow-up with primary care and neurologist until return to work and driving - Lab Data Result diagrams: 10/11/22 16:49 10/11/22 16:49 Lab Results 10/11/22 10/11/22 10/11/22 Range/Units 16:49 16:49 16:49 WBC 6.6 (3.8-10.6) k/uL RBC 3.94 (3.80-5.40) m/uL Hgb 12.9 (11.4-16.0) gm/dL Hct 37.3 (34.0-46.0) % MCV 94.8 (80.0-100.0) fL MCH 32.7 (25.0-35.0) pg MCHC 34.5 (31.0-37.0) g/dL RDW 12.8 (11.5-15.5) % Plt Count 232 (150-450) k/uL MPV 7.5 Neutrophils % 65 % Lymphocytes % 24 % Monocytes % 5 % Eosinophils % 4 % Basophils % 1 % Neutrophils # 4.3 (1.3-7.7) k/uL Lymphocytes # 1.6 (1.0-4.8) k/uL Monocytes # 0.3 (0-1.0) k/uL Eosinophils # 0.3 (0-0.7) k/uL Basophils # 0.0 (0-0.2) k/uL PT 9.7 (9.0-12.0) sec INR 0.9 (<1.2) APTT 23.0 (22.0-30.0) sec Sodium 139 (137-145) mmol/L Potassium 3.6 (3.5-5.1) mmol/L Chloride 106 (98-107) mmol/L Carbon Dioxide 26 (22-30) mmol/L Anion Gap 7 mmol/L BUN 21 H (7-17) mg/dL Creatinine 0.62 (0.52-1.04) mg/dL Est GFR (CKD-EPI)AfAm >90 (>60 ml/min/1.73 sqM) Est GFR (CKD-EPI)NonAf >90 (>60 ml/min/1.73 sqM) Glucose 127 H (74-99) mg/dL Calcium 8.5 (8.4-10.2) mg/dL Total Bilirubin 0.3 (0.2-1.3) mg/dL AST 28 (14-36) U/L ALT 26 (4-34) U/L Alkaline Phosphatase 118 (38-126) U/L Creatine Kinase 178 H (30-135) U/L Troponin I (0.000-0.034) ng/mL Total Protein 6.2 L (6.3-8.2) g/dL Albumin 3.9 (3.5-5.0) g/dL TSH 3.250 (0.465-4.680) mIU/L Urine Color Urine Appearance (Clear) Urine pH (5.0-8.0) Ur Specific [place] (1.001-1.035) Urine Protein (Negative) Urine Glucose (UA) (Negative) Urine Ketones (Negative) Urine Blood (Negative) Urine Nitrite (Negative) Urine Bilirubin (Negative) Urine Urobilinogen (<2.0) mg/dL Ur Leukocyte Esterase (Negative) Urine Opiates Screen (NotDetected) Ur Oxycodone Screen (NotDetected) Urine Methadone Screen (NotDetected) Ur Propoxyphene Screen (NotDetected) Ur Barbiturates Screen (NotDetected) U Tricyclic Antidepress (NotDetected) Ur Phencyclidine Scrn (NotDetected) Ur Amphetamines Screen (NotDetected) U Methamphetamines Scrn (NotDetected) U Benzodiazepines Scrn (NotDetected) Urine Cocaine Screen (NotDetected) U Marijuana (THC) Screen (NotDetected) Serum Alcohol <10 mg/dL 10/11/22 10/11/22 Range/Units 16:49 16:49 WBC (3.8-10.6) k/uL RBC (3.80-5.40) m/uL Hgb (11.4-16.0) gm/dL Hct (34.0-46.0) % MCV (80.0-100.0) fL MCH (25.0-35.0) pg MCHC (31.0-37.0) g/dL RDW (11.5-15.5) % Plt Count (150-450) k/uL MPV Neutrophils % % Lymphocytes % % Monocytes % % Eosinophils % % Basophils % % Neutrophils # (1.3-7.7) k/uL Lymphocytes # (1.0-4.8) k/uL Monocytes # (0-1.0) k/uL Eosinophils # (0-0.7) k/uL Basophils # (0-0.2) k/uL PT (9.0-12.0) sec INR (<1.2) APTT (22.0-30.0) sec Sodium (137-145) mmol/L Potassium (3.5-5.1) mmol/L Chloride (98-107) mmol/L Carbon Dioxide (22-30) mmol/L Anion Gap mmol/L BUN (7-17) mg/dL Creatinine (0.52-1.04) mg/dL Est GFR (CKD-EPI)AfAm (>60 ml/min/1.73 sqM) Est GFR (CKD-EPI)NonAf (>60 ml/min/1.73 sqM) Glucose (74-99) mg/dL Calcium (8.4-10.2) mg/dL Total Bilirubin (0.2-1.3) mg/dL AST (14-36) U/L ALT (4-34) U/L Alkaline Phosphatase (38-126) U/L Creatine Kinase (30-135) U/L Troponin I <0.012 (0.000-0.034) ng/mL Total Protein (6.3-8.2) g/dL Albumin (3.5-5.0) g/dL TSH (0.465-4.680) mIU/L Urine Color Light Yellow Urine Appearance Clear (Clear) Urine pH 5.5 (5.0-8.0) Ur Specific [place] 1.023 (1.001-1.035) Urine Protein Negative (Negative) Urine Glucose (UA) Negative (Negative) Urine Ketones Negative (Negative) Urine Blood Negative (Negative) Urine Nitrite Negative (Negative) Urine Bilirubin Negative (Negative) Urine Urobilinogen <2.0 (<2.0) mg/dL Ur Leukocyte Esterase Negative (Negative) Urine Opiates Screen Detected H (NotDetected) Ur Oxycodone Screen Detected H (NotDetected) Urine Methadone Screen Not Detected (NotDetected) Ur Propoxyphene Screen Not Detected (NotDetected) Ur Barbiturates Screen Not Detected (NotDetected) U Tricyclic Antidepress Not Detected (NotDetected) Ur Phencyclidine Scrn Not Detected (NotDetected) Ur Amphetamines Screen Not Detected (NotDetected) U Methamphetamines Scrn Not Detected (NotDetected) U Benzodiazepines Scrn Detected H (NotDetected) Urine Cocaine Screen Not Detected (NotDetected) U Marijuana (THC) Screen Detected H (NotDetected) Serum Alcohol mg/dL Disposition Clinical Impression: Encephalopathy Disposition: LEFT AGAINST MEDICAL ADVICE Condition: Undetermined Additional Instructions: I recommended hospital admission. You are leaving AGAINST MEDICAL ADVICE. You cannot work or drive until you are cleared by your primary care doctor and neur ologist Is patient prescribed a controlled substance at d/c from ED?: No Referrals: Josh Meade MD [Primary Care Provider] - 1-2 days Time of Disposition: 19:06
--- NOTE | 2022-10-11 17:18 | XR ---
EXAMINATION TYPE: XR chest 2V DATE OF EXAM: 10/11/2022 COMPARISON: 08/15/2022 HISTORY: Altered mental status TECHNIQUE: Frontal and lateral views of the chest are obtained. FINDINGS: There is no focal air space opacity, pleural effusion, or pneumothorax seen. The cardiac silhouette size is within normal limits. The osseous structures are intact. IMPRESSION: No acute cardiopulmonary process.
[2022-10-11 17:21] LABS: INR 0.9 (<1.2); Prothrombin Time 9.7 sec (9.0-12.0)
--- NOTE | 2022-10-11 17:22 | CT ---
EXAMINATION TYPE: CT brain wo con DATE OF EXAM: 10/11/2022 COMPARISON: 08/15/2022 HISTORY: Neuro deficits. CT DLP: 1131.4 mGycm Automated exposure control for dose reduction was used. FINDINGS: The ventricles, basal cisterns and sulci over the convexities within normal limits and there is no ma ss effect or shift of the midline structures. No abnormal density is seen throughout the brain parenchyma and there is no acute intra or extra-axia l hemorrhage. The posterior fossa including the brainstem, fourth ventricle and cerebellar pontine angles appear gr ossly normal. The intraorbital contents appear normal and symmetric. Visualized paranasal sinuses and mastoid air cells are well aerated. The calvarium is intact. IMPRESSION: No significant abnormality seen. No acute bleed or mass effect. IMPRESSION:
[2022-10-11 17:25] LABS: ALT 26 U/L (4-34); AST 28 U/L (14-36); African American GFR (CKD) >90 (>60 ml/min/1.73 sqM); Albumin 3.9 g/dL (3.5-5.0); Alcohol <10 mg/dL; Alkaline Phosphatase 118 U/L (38-126); Anion Gap 7 mmol/L; Blood Urea Nitrogen 21 mg/dL (7-17); Calcium 8.5 mg/dL (8.4-10.2); Carbon Dioxide 26 mmol/L (22-30); Chloride 106 mmol/L (98-107); Creatine Kinase 178 U/L (30-135); Glucose 127 mg/dL (74-99); Non-African American GFR(CKD) >90 (>60 ml/min/1.73 sqM); Potassium 3.6 mmol/L (3.5-5.1); Sodium 139 mmol/L (137-145); Total Bilirubin 0.3 mg/dL (0.2-1.3); Total Protein 6.2 g/dL (6.3-8.2)
[2022-10-11 18:29] LABS: Appearance,Urine Clear (Clear); Bilirubin,Urine Negative (Negative); Blood,Urine Negative (Negative); Color,Urine Light Yellow; Glucose,Urine (UA) Negative (Negative); Ketones,Urine Negative (Negative); Leukocyte Esterase,Urine Negative (Negative); Nitrite,Urine Negative (Negative); PH, Urine 5.5 (5.0-8.0); Protein,Urine Negative (Negative); Specific Gravity,Urine 1.023 (1.001-1.035); Urobilinogen,Urine <2.0 mg/dL (<2.0)
[2022-10-11 18:44] LABS: Amphetamine Screen,Urine Not Detected (NotDetected); Barbiturate Screen,Urine Not Detected (NotDetected); Benzodiazepines Screen,Urine Detected (NotDetected); Cocaine Screen,Urine Not Detected (NotDetected); Methadone Screen, Urine Not Detected (NotDetected); Opiate Screen,Urine Detected (NotDetected); Oxycodone Screen, Urine Detected (NotDetected); Phencyclidine Screen,Urine Not Detected (NotDetected); Tricyclic Antidepressant,Urine Not Detected (NotDetected); Urn Cannabinoid Scrn Detected (NotDetected)
[2022-10-11 21:01] VITALS: BP 146/80; PULSE 95; TEMP 98.4
== END 2022-10-11 19:25 | disposition left against medical advice (07) ==
LOC: EC 16:32
DX: G93.40 Encephalopathy, unspecified (principal); E78.5 Hyperlipidemia, unspecified; M19.90 Unspecified osteoarthritis, unspecified site; E03.9 Hypothyroidism, unspecified; F41.9 Anxiety disorder, unspecified; Z79.1 Long term (current) use of non-steroidal anti-inflammatories (NSAID); Z79.899 Other long term (current) drug therapy; Z79.890 Hormone replacement therapy; Z91.018 Allergy to other foods; Z91.030 Bee allergy status; Z88.2 Allergy status to sulfonamides; Z88.1 Allergy status to other antibiotic agents; Z53.29 Procedure and treatment not carried out because of patient's decision for other reasons
CPT/HCPCS: 36415; 70450; 71046; 80053; 80306; 80320; 81003; 82550; 84443; 84484; 85025; 85610; 85730; 93005; 99285

== ENCOUNTER → 2022-10-28 | Outpatient (CLI) | payer MEDICAID ==
--- NOTE | 2022-10-29 07:28 | EEG ---
ELECTROENCEPHALOGRAM REPORT CLINICAL HISTORY: This is a 62-year-old woman with reported memory lapses. The video EEG is obtained to evaluate for seizure and epileptiform activity. RELEVANT MEDICATIONS: Xanax. EEG TYPE: A routine 21-channel EEG DESCRIPTION: Wakefulness is only obtained. During awake state, the posterior-dominant rhythm consists of alk-ct-rpoyoflm voltage of 10 to 10.5 Hz activity. There is no physiological stage II sleep architecture. There is delta slowing over the left temporal region. INTERICTAL AND ICTAL: There is a spike and slow wave over the left temporal region, and it seems stemming from T5/T3 leads. No seizure is noted during the study. ACTIVATION PROCEDURE: Photic stimulation did not evoke a posterior driving response. There is no abnormality during the photic stimulation. Hyperventilation is not performed. CLINICAL INTERPRETATION: This is an abnormal routine EEG. The epileptiform discharge over the left temporal (T5/T3 leads) increased risk for focal seizure as well as status epilepticus. The focal slowing over the left anabaptism is suggestive of focal cerebral dysfunction. Otherwise, there is no seizure noted during the study. Recommend a prolonged EEG as an outpatient for further evaluation. Clinical correlation is recommended. MMODL / IJN: [id number] /
== END ==
LOC: NEUROMAIN 12:21
PROVIDERS: ATTEND Family Medicine
DX: R41.9 Unspecified symptoms and signs involving cognitive functions and awareness (principal); J44.9 Chronic obstructive pulmonary disease, unspecified; G47.00 Insomnia, unspecified; Z91.011 Allergy to milk products; Z91.030 Bee allergy status; Z88.2 Allergy status to sulfonamides; Z87.891 Personal history of nicotine dependence
CPT/HCPCS: 95816

== ENCOUNTER 2023-02-17 19:18 | Outpatient (CLI) | payer OTHER ==
--- NOTE | 2023-02-18 18:23 | P.PCN ---
Description of Procedure: POLYSOMNOGRAPHY REPORT PROCEDURE(S)/DATE(S): Polysomnography 02/17/2023 CLINICAL: Patient has been seen in the sleep center for evaluation of obstructive sleep apnea-hypopnea syndrome. Please see my consultation. Sleep study has been done for evaluation of patient breathing during the sleep. PROCEDURE: The standard montage for clinical polysomnography included the electroencephalogram, the electrooculogram, the mentalis surface electromyography and Lead II cardiography. The respiratory battery consisted of measurements of nasal/buccal air flow, pressure transducer measurements from nose, thoracic and/or abdominal effort and intercostal surface electromyography. Video monitoring has been done to check for any parasomnia events. Nocturnal oxyhemoglobin saturations were obtained by finger oximetry. Step-marroquin titration with positive airway pressure was utilized to control the respiratory events, if necessary. RESULTS: During the diagnostic sleep study sleep efficiency was normal 95.3 %. Latency to sleep onset was normal 17.5 min. Sleep architecture showed stage NI was normal 6.6 %, Delta sleep was absent 0 %, REM sleep was normal 22.4 %. Respiratory channel showed 0 obstructive apneas, 1 mixed apneas, 1 central apneas, 194 hypopneas with lowest oxygen level 79%. Total apnea hypopnea index was 28.4. Heart rate was in the range between 65 and 73, average 70. EMG showed 0 periodic limb movements per hour. IMPRESSIONS: 1. Moderate close to severe obstructive sleep apnea hypopnea syndrome. 2. No significant periodic limb movements have been documented. Please see other impressions from consultation PLAN: 1. The patient will have PAP titration for correction of respiratory abnormalities during the sleep. 2. Watching weight 3 Sleep hygiene with regular time in bed for at least 7-1/2 hours. 4. No driving if feeling sleepiness. Thank you very much for allowing me to participate in the management of your patient. Sincerely, Luis Daniel Steele MD, PhD, FAASM. Diplomat of [place] [employer], Sleep Medicine Board by [place] [employer] Worker of [facility] [place]
== END 2023-02-18 06:30 | disposition home or self-care (01) ==
LOC: 3 N SLEEP 19:18
PROVIDERS: ATTEND Internal Medicine
DX: G47.33 Obstructive sleep apnea (adult) (pediatric) (principal); G47.61 Periodic limb movement disorder; Z99.89 Dependence on other enabling machines and devices; Z91.030 Bee allergy status; Z88.2 Allergy status to sulfonamides; Z91.018 Allergy to other foods; Z87.891 Personal history of nicotine dependence
CPT/HCPCS: 95810